=== PATIENT | male | born 1960 | race Caucasian/White ===

== ENCOUNTER 2016-03-18 14:47 | Emergency (ER) | payer OTHER ==
[~2016-03-18] VITALS: Ht 185.4 cm; Wt 124.7 kg
[~2016-03-18 14:47] MED LIST: ALBUTEROL S2 MG/5 ML INH; BACTRIM DS 8001 TAB PO; FLEXERIL10 MG PO; KLONOPIN 1MG TAB1 MG PO; PHENERGAN25 M1 PO; TYLENOL #31 TAB PO; ZOFRAN ODT4 MG PO; ZOFRAN4 M2 PO
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
[2016-03-18] MEDS ORDERED: QUETIAPINE FUMA25 M1 PO (15:48)
[2016-03-18] MEDS ORDERED: ESCITALOPRAM OX20 MG PO (15:48)
[2016-03-18] MEDS ORDERED: PROMETHAZINE HC25 M3 PO (15:48)
[2016-03-18] MEDS ORDERED: HYDROCHLOROTHIA25 M1 PO (15:59)
[2016-03-18] MEDS ORDERED: PRINIVIL20 M1 PO (15:59)
[2016-03-18] MEDS ORDERED: LOVASTATIN40 M1 PO (16:00)
[2016-03-18] MEDS ORDERED: ASPIRIN EC81 M1 PO (16:02)
[2016-03-18 17:29] LABS: ABSOLUTE BASOPHIL COUNT 0.1 /CUMM (0.0-0.2); ABSOLUTE EOSINOPHIL COUNT 0.2 /CUMM (0.0-0.7); ABSOLUTE GRANULOCYTE CT 9.6 /CUMM (1.4-6.5); ABSOLUTE LYMPH COUNT 1.7 /CUMM (1.2-3.4); ABSOLUTE MONOCYTE COUNT 0.7 /CUMM (0.10-0.60); BASOPHIL % 0.4 % (0.0-2.0); EOSINOPHIL % 1.4 % (0-5); GRANULOCYTE % 78.7 % (42.2-75.2); HEMATOCRIT 43.9 % (42-52); MEAN CORPUSCULAR HGB 24.9 PG (27.0-31.0); MEAN CORPUSCULAR HGB CONC 32.7 G/DL (33.0-37.0); MEAN CORPUSCULAR VOLUME 76.2 FL (80.0-94.0); MEAN PLATELET VOLUME 7.7 FL (7.4-10.4); PLATELET COUNT 319 /CUMM (130-400); RBC DISTRIBUTION WIDTH 15.5 % (11.5-14.5); RED BLOOD CELL CT 5.76 /CUMM (4.70-6.10); WHITE BLOOD CELL COUNT 12.2 /CUMM (4.8-10.8)
--- NOTE | 2016-03-18 19:12 | CT SCAN REPORT ---
EXAMINATION: CT ABDOMEN AND PELVIS WITHOUT CONTRAST CLINICAL INFORMATION: Intra-abdominal abscess. Restrictive diffuse abdominal pain. History of MRSA. COMPARISON: CT scan abdomen pelvis 10/02/2013. TECHNIQUE: Multidetector volumetric imaging was performed from the superior aspect of the liver through the pubic symphysis. Sagittal and coronal reformatted images were obtained on the technologist's workstation. No oral or intravenous contrast. DLP: 1563.22 mGy-cm. FINDINGS: LUNG BASES: Groundglass opacity at lung bases posteriorly consistent with dependent atelectasis. No infiltrate or pleural effusion. LIVER, GALLBLADDER, AND BILIARY TREE: Diffuse fatty change of liver. No focal liver lesion. No intrahepatic bile duct dilatation. The gallbladder is unremarkable with no evidence of radiopaque gallstones, gallbladder wall thickening, or obvious pericholecystic inflammatory changes. PANCREAS: Fatty atrophy of the pancreas. SPLEEN: Unremarkable. ADRENAL GLANDS: Unremarkable. KIDNEYS AND URETERS: The kidneys are normal in size, shape, and attenuation. No hydronephrosis, hydroureter, or calculi seen. No perinephric stranding. There are cortical and pedunculated renal cysts in the left kidney. BLADDER: Unremarkable. GASTROINTESTINAL TRACT: There is diverticulosis of the colon. Marked diverticulosis of left colon and sigmoid without diverticulitis. Moderate volume of scattered stool in colon. No bowel obstruction. No bowel wall thickening or edema. The appendix is normal. Small bowel loops are unremarkable. ABDOMINAL WALL: Surgical mesh at the midline abdomen near the umbilicus. There is a midline surgical incision which is intact. No hernia. Surrounding the mesh is a fluid collection. This measures 6 x 2 x 10 cm. No air in the fluid collection. There is a second fluid collection to the right of midline involving the abdominal wall musculature. This collection smaller measuring about 3 x 1 x 2 cm. There is thickening of the muscle locally in this area with stranding extending into the subcutaneous tissue with a linear opacity extending through the subcutaneous tissue to the skin line. There is additional site of thickening more cephalad also in the right upper quadrant but this has no inflammatory change. In the left lower quadrant there is thickening of the abdominal wall with some stranding extending into the subcutaneous tissue but without fluid collection. Sagittal image 58 (601. There are additional areas of focal thickening of the left anterior abdominal wall without fluid collection. LYMPH NODES: Normal. VASCULAR: Atherosclerotic vascular calcifications of aorta and iliac arteries. PELVIC VISCERA: Unremarkable. OSSEOUS STRUCTURES: Unremarkable. IMPRESSION: Postsurgical changes of the abdominal wall. There is surgical mesh which has some fluid surrounding it. There are focal area of thickening with fluid in the right side of the abdomen at the abdominal wall..
[2016-03-18] MEDS ORDERED: DILAUDID2 M1 PO (21:08)
[2016-03-18] MEDS ORDERED: XANAX0.5 M1 PO (21:08)
[2016-03-18] MEDS ORDERED: ZOFRAN ODT4 M1 SL (21:08)
[2016-03-18 21:14] VITALS: BP 123/67
== END 2016-03-18 21:27 ==
LOC: ERH 14:47
PROVIDERS: Physician Assistant Surgical
DX: T79.2XXA Traumatic secondary and recurrent hemorrhage and seroma, initial encounter (principal); I10 Essential (primary) hypertension; R11.10 Vomiting, unspecified
CPT/HCPCS: 1263; 87184; 74176; 87040; 87070; 87147; 96361; 96374; 96375; J2405; J2550

== ENCOUNTER 2016-07-07 17:33 | Inpatient (IN) | payer OTHER ==
[~2016-07-07] VITALS: Ht 182.9 cm; Wt 136.1 kg
[~2016-07-07 17:33] MED LIST changes: +ASPIRIN EC81 M1 PO; +DILAUDID2 M1 PO; +ESCITALOPRAM OX20 MG PO; +HYDROCHLOROTHIA25 M1 PO; +LOVASTATIN40 M1 PO; +PRINIVIL20 M1 PO; +PROMETHAZINE HC25 M3 PO; +QUETIAPINE FUMA25 M1 PO; +XANAX0.5 M1 PO; +ZOFRAN ODT4 M1 SL
--- NOTE | 2016-07-07 17:46 | NUR ---
PT STATES HE PULLED OFF HIS PROSTETIC LAST NIGHT AND STATES HE SAW STARS. PT STATES HE THINKS HE HAS AN INFECTION GOING ON IN HIS RIGHT BKA.
--- NOTE | 2016-07-07 19:07 | NUR ---
MARICARMEN XIAO AT BEDSIDE FOR EVALUATION OF WOUND
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
--- NOTE | 2016-07-07 19:17 | NUR ---
MEDICATED WITH ATIVAN PER eMAR FOR ANXIETY AND EMOTIONAL SUPPORT PROVIDED
--- NOTE | 2016-07-07 19:23 | NUR ---
LEG WRAPPED WITH STERILE ABD PAD. PT TO XRAY
[2016-07-07] MEDS ORDERED: METFORMIN HCL500 M3 PO (19:48)
--- NOTE | 2016-07-07 20:13 | NUR ---
PT WITH VERY POOR VENOUS ACCESS AND HX OF MULTIPLE STICKS. #24 ESTABLISHED TO R WRIST AND LABS OBTAINED BY ROGER MCINTOSH
--- NOTE | 2016-07-07 20:14 | RADIOLOGY REPORT ---
EXAMINATION: XR KNEE, RIGHT CLINICAL INFORMATION: Infection COMPARISON: 09/01/2010 TECHNIQUE: Four views of the right knee. FINDINGS: No convincing evidence for an acute bony erosion. Small foreign bodies are once again noted. Correlation recommended clinically. IMPRESSION: No convincing evidence for acute underlying bony erosion or suspicious periosteal change. Correlation recommended clinically. If further evaluation is warranted recommend MR pre and postcontrast.
[2016-07-07 20:36] LABS: ABSOLUTE BASOPHIL COUNT 0 /CUMM (0.0-0.2); ABSOLUTE EOSINOPHIL COUNT 0 /CUMM (0.0-0.7); ABSOLUTE GRANULOCYTE CT 10.5 /CUMM (1.4-6.5); ABSOLUTE LYMPH COUNT 0.8 /CUMM (1.2-3.4); ABSOLUTE MONOCYTE COUNT 0.9 /CUMM (0.10-0.60); BASOPHIL % 0 % (0.0-2.0); EOSINOPHIL % 0.1 % (0-5); HEMATOCRIT 39.2 % (42-52); MEAN CORPUSCULAR HGB 23.5 PG (27.0-31.0); MEAN CORPUSCULAR HGB CONC 31.3 G/DL (33.0-37.0); MEAN CORPUSCULAR VOLUME 75.1 FL (80.0-94.0); PLATELET COUNT 227 /CUMM (130-400); RBC DISTRIBUTION WIDTH 18.2 % (11.5-14.5); RED BLOOD CELL CT 5.22 /CUMM (4.70-6.10); WHITE BLOOD CELL COUNT 12.2 /CUMM (4.8-10.8)
--- NOTE | 2016-07-07 20:40 | NUR ---
PT APPEARS INTOXICATED WITH SLURRED SPEECH, NOTED TO HAVE MULTIPLE BEVERAGES AND LARGE CONTAINERS IN ROOM DESPITE ENCOURAGEMENT TO REMAIN NPO UNTIL APPROVED BY PA. PA NOTIFIED
--- NOTE | 2016-07-07 20:42 | NUR ---
PT NOTED TO BE SEDATED, SLURRING WORDS BUT AROUSABLE TO SPEECH
--- NOTE | 2016-07-07 20:42 | NUR ---
MEDICATED WITH UNASYN PER eMAR
--- NOTE | 2016-07-07 21:05 | NUR ---
CRITICAL TEST RESULTS [id number] RAINER SHEPARD 56 M TESTS AND RESULTS: LACTIC 3.0 POTASSIUM 1.9 Results received and read back by: PRADEEP CHRISTINE Results received date and time: 07/07/162104 The following provider was notified of the results, and read the results back: 2104 Notified date and time: 07/07/16 at 210
--- NOTE | 2016-07-07 21:15 | NUR ---
PT PROVIDED URINAL PREVIOUS, AND FOUND TO HAVE DROPPED URINE ALL OVER SELF AND BEDSIDE TABLE WITH ARM LAYING IN IT, BUT DID NOT NOTICE. URINE ALL OVER FLOOR. PT DENIES DRINKING ETOH TODAY, BUT STATES HE DOES FREQUENTLY. EKG COMPLETED. DENIES CHEST PAIN AND STATES HE MIGHT GO HOME AMA DESPITE TEACHIGN OF RISKS DUE TO CRITICAL NATURE OF LAB RESULTS
--- NOTE | 2016-07-07 21:21 | NUR ---
URINE TRIO SENT. PT FALLING ASLEEP THEN JOLTS AWAKE AND REDIRECTED TO NOT RIP OUT IV ACCIDENTALLY. PT IRRATED AND THREATENING TO LEAVE BECAUSE WE ARE PISSING HIM OFF BUT HE CANNOT EXPLAIN WHY. MARICARMEN TAYLOR NOTIFIED AND TO BEDSIDE
--- NOTE | 2016-07-07 21:59 | NUR ---
PT WANTS TO STAY IN T-SHIRT, DECLINING ENCOURAGEMENT MULTIPLE TIMES TO CHANGE INTO GOWN. STRUGGLES TO STAY AWAKE AND THEN BECOMES SLIGHTLY AWAKE AND IRRITABLE. ASKING THIS RN TO LEAVE ROOM AND ONLY WANTS PAIN MEDICINE. PT EDUCATED THAT HE WILL BE GIVEN MEDICINE TO HELP HIS ANXIETY AND AGITATION AND MEDICATED WITH ATIVAN. WOUND AGAIN DRESSED FOR THE FOURTH TIME PT IS RESTLESS ON STRETCHER AND REPEATEDLY REMOVED IT ACCIDENTALLY. PT TACHY ON CM 90'S-130'S BUT DENIES CP. DOES NOT WANT OTHER MEDS AT THIS TIME, BUT AGREEABLE TO PO POTASSIUM AND MEDICATED ORDERED. REQUIRES MONITORING FOR USE OF URINAL HE FALLS ASLEEP DURING TASKS AND IS A FALL RISK
--- NOTE | 2016-07-07 22:07 | NUR ---
PT GOING TO ROOM 188.
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
--- NOTE | 2016-07-07 22:25 | NUR ---
SECOND IV ESTABLISHED AND NS IVF BOLUS RUNNING AND MAG GTT RUNNING AT 50ML/HR, PER PA XIAO NOT 25ML/HR.
--- NOTE | 2016-07-07 22:54 | NUR ---
SST, REPEAT LACTIC AND GREEN ON ICE FOR SERUM K SENT TO LAB. MEDICATED WITH LABETOLOL FOR MANUAL BP 200/120 AND HR 110'S. REPEAT 172/86 AND HR 70'S-80'S. SLEEPING AT THIS TIME WITH EVEN RESPIRATIONS. PLACED ON SUPPLIMENTAL O2 2LNC FOR O2 SAT 89-90% AND IMPROVED TO 93-95%.
--- NOTE | 2016-07-07 23:19 | NUR ---
REPORT GIVEN TO KIMMIE VAZQUEZ
--- NOTE | 2016-07-07 23:31 | NUR ---
CRITICAL TEST RESULTS [id number] RAINER SHEPARD 56 M TESTS AND RESULTS: LACTIC 3.2, SERUM POTASSIUM 1.8 Results received and read back by: MEETA PATRICK Results received date and time: 07/07/16 2332 The following provider was notified of the results, and read the results back: HOUSE STAFF [id number] Notified date and time: 07/07/16 at 2311
[2016-07-08] VITALS: BP 142/68
--- NOTE | 2016-07-08 00:03 | NUR ---
PT BROUGHT UP TO ROOM ON TELE MONITOR WITH THIS RN, TWO MST'S AND SECURITY. PT TOLERATED WELL AND THEN PT TRANSFERED OVER TO BED. AROUSED AND AGITATED, UNABLE TO COOPERATE OR FOLLOW DIRECTIONS. ALLOWED FOR CHANGING INTO GOWN BUT THEN RIPPING IT OFF AND PULLING AWAY FROM STAFF. HOUSE STAFF IN ROOM FOR EVAL
--- NOTE | 2016-07-08 01:10 | RADIOLOGY REPORT ---
EXAMINATION: XR PORTABLE CHEST CLINICAL INFORMATION: Pneumonia. Congestion. COMPARISON: 01/30/2014 TECHNIQUE: Portable AP view of the chest was obtained. FINDINGS: Cardiac leads overlie the chest. Low lung volumes with elevation of the right hemidiaphragm. Central vascular prominence without overt edema. No pleural effusion or dense consolidation. No pneumothorax. The cardiomediastinal silhouette remains prominent. IMPRESSION: Central vascular prominence without overt edema. No dense consolidation.
[2016-07-08 02:00] VITALS: BP 150/86
--- NOTE | 2016-07-08 02:00 | NUR ---
PT ARRIVED TO FLOOR ON MONITOR, SLEEPING, TRANSFERRED PATIENT OVER TO BED. PT WOKE UP AND WAS SLIGHTLY CONFUSED AND UNCOOPERATIVE. DRESSED INTO GOWN, WHICH PATIENT PULLED OFF. PT REMOVED DRESSING TO RLE. HOUSESTAFF IN TO SEE PATIENT AND ASSESS WOUND. PT VERY FIDGETY AND UNCOOPERATIVE AND RESTLESS, BUT ALSO VERY DROWSY. WOULD STAY AWAKE FOR SEVERAL SECONDS, THEN FALL ASLEEP. WHILE AWAKE PT DID PULL IV OUT IN HIS LEFT HAND. PT ATTEMPTED SEVERAL TIMES TO USE THE URINAL HIMSELF BUT THEN WOULD FALL ASLEEP. PT ALSO ATTEMPTED TO SIT ON EDGE OF BED SEVERAL TIMES WITH LEGS DANGLING BUT WOULD FALL ASLEEP AND LEAN FORWARD, AND WOULD ALSO REMOVE HIS RLE DRESSING IN THE PROCESS. ORDER OBTAINED FOR PATIENT SAFETY MONITOR. NEW IV PUT IN AND MEDS AND FLUIDS GIVEN ORDERED. PT DID WAKE UP MORE WHEN ARRIVED AT 0200 BUT BECAME VERY ANXIOUS AND RESTLESS AND FIDGETY AGAIN AND BEGAN TO CRY. ONE TIME ORDER FOR ATIVAN OBTAINED. PT NOW SLEEPING COMFORTBALY, DRESSING INTACT.
[2016-07-08 04:00] VITALS: BP 150/88
[2016-07-08 06:00] VITALS: BP 180/93
--- NOTE | 2016-07-08 06:30 | NUR ---
PT'S BP NOTED TO BE 180/[address] SAM STOREY, GIVE SCHEDUELD DOSE OF LISINIPRIL EARLY NOW. ATTEMPTED TO GIVE THIS, BUT PATIENT DIFFICULT TO AROUSE AGAIN AND WOULD NOT KEEP EYES OPEN FOR MORE THAN [address]. [address] VARGAS WILL HOLD OFF ON THE LISINIPRIL FOR NOW AND RECHECK BP IN 2 HOURS. PT SLEEPING.
--- NOTE | 2016-07-08 07:32 | PN- Housestaff ---
Subjective Follow-up For: Cellulitis of the right BKA stump Alcohol withdrawal Opiate withdrawal T2DM Tele-Events Since Last Visit: Sinus rhythm HR 73-91 PVCs Subjective: No acute events overnight. Patient seen and examined this morning. He appears lethargic. Review of Systems Constitutional: Reports: see HPI. Objective Last 24 Hrs of Vital Signs/I&O Vital Signs Date Time Temp Pulse Resp B/P B/P Pulse O2 O2 Flow FiO2 Mean Ox Delivery Rate 07/08 1530 97.9 88 18 128/78 94 Room Air 07/08 1350 Nasal 2.0L Cannula 07/08 1015 98.0 91 18 160/80 07/08 1015 98.0 91 18 160/80 07/08 0921 98.0 91 18 160/80 95 Nasal Cannula 07/08 0800 Nasal 2.0L Cannula 07/08 0600 98.8 90 20 180/93 07/08 0400 99.0 88 20 150/88 07/08 0200 98.8 88 20 150/86 07/08 0000 Nasal 2.0L Cannula 07/08 0000 98.3 88 20 142/68 07/08 0000 98.3 88 20 142/68 98 Nasal 2.0L Cannula 07/07 2306 79 16 153/74 94 Nasal 2.0L Cannula 07/07 2256 99.0 78 14 172/86 94 Nasal 2.0L Cannula 07/07 2244 118 14 200/120 89 Room Air 07/07 2240 114 200/120 07/07 2235 97.0 114 16 195/93 94 Nasal 2.0L Cannula 07/07 2124 98.9 70 14 178/90 94 Room Air 07/07 1746 98.2 94 16 195/100 98 Room Air Intake & Output 07/08 1600 07/08 0800 07/08 0000 Intake Total 1460 1190 Output Total 950 650 400 Balance 510 540 -400 Intake, IV 1000 950 Intake, Oral 460 240 Output, Urine 950 650 400 Patient 0 kg Weight Weight Reported by Patient Measurement Method Physical Exam General Appearance: Lethargic HEENT: Atraumatic, Mucous Membr. moist/pink Neck: Supple Cardiovascular: Regular Rate, Normal S1, Normal S2, No Murmurs, Gallops, Rubs Lungs: Clear to Auscultation Abdomen: Soft, No Tenderness, Positive Bowel Sounds Extremities: S/p BKA, Wound with Erythema and Tenderness Current Medications: Current Medications Sig/Rodrigue Start time Last Medication Dose Route Stop Time Status Admin Acetaminophen 650 MG Q6P PRN 07/07 2315 AC PO Ampicillin Sodium/ 0 .STK-MED ONE 07/07 2042 DC Sulbactam Sodium .ROUTE Ampicillin Sodium/ 1,500 MG ONCE ONE 07/07 193 DC 07/07 Sulbactam Sodium IV 07/07 Sodium Chloride 100 ML Aspirin Buffered 81 MG DAILY 07/08 1000 AC 07/08 PO 1014 Atorvastatin Calcium 10 MG 1700 07/08 1700 AC PO Clonidine 0.1 MG BID 07/08 1000 AC 07/08 PO 1015 Escitalopram Oxalate 20 MG DAILY 07/08 1000 AC 07/08 PO 1014 Folic Acid 1 MG DAILY 07/08 1000 AC 07/08 PO 1014 Heparin Sodium 5,000 UNIT Q8 07/08 0600 AC 07/08 (Porcine) SC 1314 Hydrochlorothiazide 25 MG DAILY 07/08 1000 AC 07/08 PO 1014 Ibuprofen 600 MG Q6P PRN 07/07 2315 AC PO Insulin Aspart 0 TIDAC 07/08 0800 AC 07/08 SC 1203 Labetalol HCl 10 MG ONCE ONE 07/07 2244 DC 07/07 IV 07/07 2246 2240 Labetalol HCl 0 .STK-MED ONE 07/07 2241 DC IV Lisinopril 20 MG DAILY 07/08 1000 AC 07/08 PO 1015 Lorazepam 0 Q1P PRN 07/08 0300 AC IV Lorazepam 1 MG BID 07/08 0248 AC 07/08 PO 1013 Lorazepam 0 .STK-MED ONE 07/08 2135 DC .ROUTE Lorazepam 0 .STK-MED ONE 07/07 2132 DC .ROUTE Lorazepam 2 MG ONE ONE 07/07 2129 DC 07/07 IV 07/07 Lorazepam 1 MG ONE ONE 07/07 1914 DC 07/07 PO 07/07 Lorazepam 0 .STK-MED ONE 07/07 1913 DC PO Magnesium Sulfate 0 .STK-MED ONE 07/07 2132 DC .ROUTE Magnesium Sulfate 1 GM ONCE ONE 07/07 2129 DC 07/07 Dextrose/Water 100 ML IV 07/08 0129 2220 Multivitamins 1 TAB DAILY 07/08 1000 AC 07/08 PO 1014 Nicotine 21 MG DAILY 07/08 1000 AC 07/08 TOP 1013 Oxycodone/ 2 TAB Q6P PRN 07/07 2315 DC 07/08 Acetaminophen PO 0319 Potassium Chloride 60 MEQ ONCE ONE 07/08 0930 DC 07/08 PO 07/08 0931 1013 Potassium Chloride 10 MEQ Q1H 07/08 0930 DC 07/08 IV 07/08 1031 1207 Potassium Chloride 10 MEQ Q1H 07/07 2330 DC 07/08 IV 07/08 0031 0630 Potassium Chloride 40 MEQ ONCE ONE 07/07 2330 DC 07/08 PO 07/07 2331 0318 Potassium Chloride 0 .STK-MED ONE 07/07 2146 DC PO Potassium Chloride 10 MEQ ONCE ONE 07/07 211 DC 07/07 IV 07/08 2115 2250 Potassium Chloride 40 MEQ ONCE ONE 07/07 211 DC 07/07 PO 07/08 2115 2159 Promethazine HCl 25 MG Q6P PRN 07/08 0030 AC PO 07/15 0029 Quetiapine Fumarate 25 MG QPM 07/08 2200 AC PO Sodium Chloride 1,000 ML Q10H 07/07 2330 AC 07/08 IV 07/08 1929 0825 Sodium Chloride 1,000 ML BOLUS ONE 07/07 2199 DC 07/08 IV 07/07 2259 0310 Sodium Chloride 1,000 ML .Q8H 07/07 214 DC IV Sodium Chloride 1,000 ML BOLUS ONE 07/07 2114 DC 07/07 IV 07/07 2214 2150 Sodium Chloride 1,000 ML BOLUS ONE 07/07 2114 DC 07/07 IV 07/07 2214 2220 Thiamine HCl 100 MG DAILY 07/08 1000 AC 07/08 PO 1014 Vancomycin HCl 1,750 MG Q12 07/08 2200 UNir Sodium Chloride 250 ML IV Vancomycin HCl 2,000 MG Q12 07/08 1000 CAN Sodium Chloride 500 ML IV Vancomycin HCl 1,000 MG ONCE ONE 07/07 1930 DC 07/07 Sodium Chloride 250 ML IV 07/07 202 2300 Last 24 Hrs of Lab/James Results Last 24 Hrs of Labs/Mics: Laboratory Tests 07/08/16 0724: Anion Gap 7, Estimated GFR > 60, BUN/Creatinine Ratio 35.0 H, Lactic Acid 1.5, Total Bilirubin 0.5, Direct Bilirubin 0.4, AST 59, ALT 176 H, Alkaline Phosphatase 44, Total Protein 5.8 L, Albumin 2.7 L, CBC w Diff NO MAN DIFF REQ , RBC 4.77, MCV 75.0 L, MCH 24.1 L, RDW 18.1 H, MPV 8.3, Gran % 75.5 H, Lymphocytes % 13.0 L, Monocytes % 7.3, Eosinophils % 4.2, Basophils % 0 L, Absolute Granulocytes 6.0, Absolute Lymphocytes 1.0 L, Absolute Monocytes 0.6, Absolute Eosinophils 0.3, Absolute Basophils 0, PUBS MCHC 32.1 L 07/08/16 0319: Lactic Acid Cancelled 07/08/16 0140: Lactic Acid 2.6 H 07/08/16 0140: Anion Gap 8, Estimated GFR > 60, BUN/Creatinine Ratio 26.0 H, Phosphorus 3.0, Magnesium 2.1, Hepatitis A IgM Ab Pending, Hep Bs Antigen Pending, Hep B Core IgM Ab Conf Pending, Hepatitis C Antibody Pending 07/08/16 0100: Potassium Cancelled 07/07/16 2320: Sodium Cancelled, Potassium Cancelled, Chloride Cancelled, Carbon Dioxide Cancelled, Anion Gap Cancelled, BUN Cancelled, Creatinine Cancelled, BUN/ Creatinine Ratio Cancelled 07/07/16 2244: Lactic Acid 3.2 H 07/07/16 2233: Plasma Potassium 1.8 *L, Serum Alcohol < 10.0 07/07/162118: Urine Opiates Screen > 4000.00 H, Methadone Screen 159, Barbiturate Screen < 60 , Ur Phencyclidine Scrn < 6.00, Amphetamines Screen < 100, U Benzodiazepines Scrn < 85, Urine Cocaine Screen < 50, Urine Cannabis Screen 79.60 H 07/07/162109: Urine Color YEL, Urine Clarity CLEAR, Urine pH 7.5, Ur Specific [place] 1.020, Urine Protein 100 H, Urine Ketones NEG, Urine Nitrite NEG, Urine Bilirubin NEG, Urine Urobilinogen 0.2, Ur Leukocyte Esterase NEG, Ur Microscopic SEDIMENT EXAMINED, Urine RBC 1-3, Ur Epithelial Cells RARE, Urine Mucus RARE, Urine Hemoglobin SMALL H, Urine Glucose >=1000 H 07/07/162011: Anion Gap 10, Estimated GFR > 60, BUN/Creatinine Ratio 26.0 H, Glucose 309 H, Hemoglobin A1c 8.1 H, Lactic Acid 3.0 H, Calcium 8.5, Magnesium 1.9, Total Bilirubin 0.8, AST 106 H, ALT 195 H, Alkaline Phosphatase 49, Troponin I 0.06, C-Reactive Prot, Quant 7.5 H, Total Protein 6.4, Albumin 3.1 L, Globulin 3.3, Albumin/Globulin Ratio 0.9 L, CBC w Diff NO MAN DIFF REQ, RBC 5.22, MCV 75.1 L , MCH 23.5 L, RDW 18.2 H, MPV 8.0, Gran % 86.0 H, Lymphocytes % 6.6 L, Monocytes % 7.3, Eosinophils % 0.1, Basophils % 0 L, Absolute Granulocytes 10.5 H, Absolute Lymphocytes 0.8 L, Absolute Monocytes 0.9 H, Absolute Eosinophils 0, Absolute Basophils 0, PUBS MCHC 31.3 L, ESR Westergren 41 H, Serum Alcohol < 10.0 Microbiology 07/08 29 EXTREMITIE: Culture & Sensitivity - RES 07/08 29 EXTREMITIE: Gram Stain - RES 07/07 2013 BLOOD: Blood Culture - RES 07/08 2011 BLOOD: Blood Culture - RES BCx (07/07/16): Negative Superficial culture R BKA stump (07/08/16): Gram stain with few WBCs and GPCs Orders Radiology Findings: Central vascular prominence without overt edema. No dense consolidation. Assessment/Plan Assessment: 56 y/o M with PMHx of T2DM, COPD and s/p right BKA who presents with pain, erythema and swelling from the right BKA stump. #Cellulitis of the right BKA stump: Erythema, edema, purulent drainage at the BKA stump consistent with cellulitis with possible superimposed underlying fluid collection or osteomyelitis. Patient is colonized with MRSA therefore superficial culture may reflect skin contamination. Remains afebrile. Mild leukocytosis on admission has resolved. Lactic acid has improved to 1.5. BCx negative so far. S/p 1 dose of IV Unasyn followed by 1 dose of IV vancomycin in the ED. * ID following. Appreciate their recs. * Ultrasound of the R BKA stump ordered to evaluate for underlying fluid collection. * MRI of the right leg to ordered to evaluate for osteomyelitis. * Start vancomycin 1.75 g IV Q12H. #Lethargy: Likely secondary to opiate abuse with and Ativan that he has been receiving for alcohol withdrawal symptoms. Patient admits to buying opiates off the street and using methadone. * Start clonidine 0.1 mg PO BID. * Check ammonia to rule out hyperammonemia as a potential cause of altered mental status in view of elevated LFTs. * Discontinue narcotics including Percocet. * Continue gentle hydration with NS @ 75 cc/hr while patient is lethargic. #Hypokalemia: K 1.9 on admission. Improved to only 2.3 this morning after receiving 80 mEq of oral K and 10 mEq of IV K x3. Mg normal at 2.1. * Administer 60 mEq of oral K and 10 mEq of IV K x2. * Recheck K in the evening and replete as needed. #Elevated LFTs: AST/ALT slightly improved to 59/176 today from 106/195 on admission. Could be secondary to alcohol withdrawal although LFTs do not fit the 2:1 ratio characteristic of alcohol withdrawal. * Continue to monitor LFTs. * Hepatitis panel pending. #T2DM: HbA1c 8.1 suggesting suboptimal glycemic control. * Hold oral hypoglycemic agents while inpatient. * Increase low-dose sliding scale Novolog TIDAC to medium-dose. #Alcohol withdrawal: CIWA scores have been running low and are <10. * CIWA to monitor for signs/symptoms of alcohol withdrawal. * Continue Ativan 1 mg PO BID. * Ativan 1 mg IV Q1H PRN per CIWA protocol. * Continue daily MVI, thiamine and folic acid. #HTN: * Continue prior to admission HCTZ 25 mg PO daily and lisinopril 20 mg PO daily. * ECHO ordered to evaluate for CHF. Diet: Consistent Carbohydrate 3 DVT PPx: HSQ CODE: DNR/DNI Problem List: 1. Lethargy 2. Cellulitis of leg, right 3. Amputation of right lower extremity below knee 4. Opiate dependence 5. Alcohol withdrawal 6. T2DM (type 2 diabetes mellitus) 7. Elevated LFTs 8. Hypokalemia 9. Hypertension 10. Hx MRSA infection Pain Ratin Pain Location: BKA stump Pain Goal: Pain 4 or less Pain Plan: Percocet 2 tabs PO Q6H PRN for severe pain (scale 7-10) Motrin 600 mg PO Q6H PRN for moderate pain (scale 4-6) Tylenol 650 mg PO Q6H PRN for mild pain (scale 1-3) Tomorrow's Labs & Rationales: CBC to monitor WBC in the setting of infection BMP to monitor lytes and kidney function in the setting of electrolyte disturbances LFTs in the setting of transaminitis
[2016-07-08 08:36] LABS: ABSOLUTE BASOPHIL COUNT 0 /CUMM (0.0-0.2); ABSOLUTE EOSINOPHIL COUNT 0.3 /CUMM (0.0-0.7); ABSOLUTE MONOCYTE COUNT 0.6 /CUMM (0.10-0.60); BASOPHIL % 0 % (0.0-2.0); EOSINOPHIL % 4.2 % (0-5); GRANULOCYTE % 75.5 % (42.2-75.2); HEMATOCRIT 35.8 % (42-52); MEAN CORPUSCULAR HGB 24.1 PG (27.0-31.0); MEAN CORPUSCULAR HGB CONC 32.1 G/DL (33.0-37.0); MEAN PLATELET VOLUME 8.3 FL (7.4-10.4); PLATELET COUNT 195 /CUMM (130-400); RBC DISTRIBUTION WIDTH 18.1 % (11.5-14.5); RED BLOOD CELL CT 4.77 /CUMM (4.70-6.10)
[2016-07-08 09:21] VITALS: BP 160/80
--- NOTE | 2016-07-08 09:22 | Admission Certification ---
Admission Certification Certification Statement - As attending physician, I certify that at the time of - admission, based on clinical presentation, severity of - symptoms, need for further diagnostic testing and - therapeutic interventions, and risk of adverse outcomes - without in-hospital treatment, in my clinical assessment, - this patient requires an acute hospital stay for a minimum - of two nights or longer. I have also considered psychsocial - factors such as support system, advanced age, financial - issues, cognitive issues, and failed out-patient treatments, - past re-admission history, safety of patient, and lack of - compliance as applicable. Specific rationale supporting this admission is: Cellulitis right stump
--- NOTE | 2016-07-08 09:29 | PN- Att Addend ---
Attending Addendum Attending Brief Note Patient is lethargic and sleepy. Patient's at bedside. General Appearance: Sleepy Skin: Right stump superficial wound with minimal oozing HEENT: PEERLA Neck: Supple, No JVD Cardiovascular: Regular Rate, Normal S1, Normal S2, No Murmurs Lungs: Clear to Auscultation, Normal Air Movement Abdomen: Normal Bowel Sounds, Soft, No Tenderness Extremities: Right stump wound Assessment 56-year-old with history of COPD, hypertension, type 2 diabetes, history of MRSA in the past who is status post traumatic right stump amputation presenting with pain and discharge at the stump site. X-ray negative for osteo. It appears wound is superficial without bony involvement. He also has elevated LFTs. Patient's provides history of drug abuse. Patient buys opioids of street and sometimes she gets her methadone. According to her he may be having opioid withdrawals. X-ray shows central venous congestion. Plan Continue vancomycin ID consult MRI to rule out osteomyelitis Check hepatitis panel Discontinue opioids Start clonidine 0.1 mg twice a day Check hemoglobin A1c and maintain patient on insulin sliding scale with Accu- Cheks Order echocardiogram Continue other hypertensive medications Trende lactic acid and follow blood cultures Surgical evaluation if MRI suggesting collection or abscesses Start CIWA protocol Continue other home medications DVT prophylaxis DNI/DNR Current Medications Sig/Rodrigue Start time Last Medication Dose Route Stop Time Status Admin Acetaminophen 650 MG Q6P PRN 07/07 2314 AC PO Ampicillin Sodium/ 0 .STK-MED ONE 07/07 2042 DC Sulbactam Sodium .ROUTE Ampicillin Sodium/ 1,500 MG ONCE ONE 07/07 1930 DC 07/07 Sulbactam Sodium IV 07/07 Sodium Chloride 100 ML Aspirin Buffered 81 MG DAILY 07/08 1000 AC PO Atorvastatin Calcium 10 MG 1700 07/08 1700 AC PO Clonidine 0.1 MG BID 07/08 1000 AC PO Escitalopram Oxalate 20 MG DAILY 07/08 1000 AC PO Folic Acid 1 MG DAILY 07/08 1000 AC PO Heparin Sodium 5,000 UNIT Q8 07/08 0600 AC 07/08 (Porcine) SC 0547 Hydrochlorothiazide 25 MG DAILY 07/08 1000 AC PO Ibuprofen 600 MG Q6P PRN 07/07 2315 AC PO Insulin Aspart 0 TIDAC 07/08 0800 AC SC Labetalol HCl 10 MG ONCE ONE 07/07 2244 DC 07/07 IV 07/07 2240 Labetalol HCl 0 .STK-MED ONE 07/07 2242 DC IV Lisinopril 20 MG DAILY 07/08 1000 AC PO Lorazepam 0 Q1P PRN 07/08 0300 AC IV Lorazepam 1 MG BID 07/08 0248 AC 07/08 PO 0318 Lorazepam 0 .STK-MED ONE 07/08 2135 DC .ROUTE Lorazepam 0 .STK-MED ONE 07/07 2132 DC .ROUTE Lorazepam 2 MG ONE ONE 07/07 2129 DC 07/07 IV 07/07 2130 214 Lorazepam 1 MG ONE ONE 07/07 1914 DC 07/07 PO 07/08 1915 191 Lorazepam 0 .STK-MED ONE 07/07 1913 DC PO Magnesium Sulfate 0 .STK-MED ONE 07/07 2132 DC .ROUTE Magnesium Sulfate 1 GM ONCE ONE 07/07 2129 DC 07/07 Dextrose/Water 100 ML IV 07/08 0129 2220 Multivitamins 1 TAB DAILY 07/08 1000 AC PO Nicotine 21 MG DAILY 07/08 1000 AC TOP Oxycodone/ 2 TAB Q6P PRN 07/07 2315 DC 07/08 Acetaminophen PO 0319 Potassium Chloride 10 MEQ Q1H 07/07 2330 DC 07/08 IV 07/08 0031 0630 Potassium Chloride 40 MEQ ONCE ONE 07/07 233 DC 07/08 PO 07/07 2330 0318 Potassium Chloride 0 .STK-MED ONE 07/07 2145 DC PO Potassium Chloride 10 MEQ ONCE ONE 07/07 2114 DC 07/07 IV 07/08 2115 225 Potassium Chloride 40 MEQ ONCE ONE 07/07 2114 DC 07/07 PO 07/08 2115 215 Promethazine HCl 25 MG Q6P PRN 07/08 0030 AC PO 07/15 0029 Quetiapine Fumarate 25 MG QPM 07/08 2200 AC PO Sodium Chloride 1,000 ML Q10H 07/07 2330 AC 07/08 IV 07/08 1929 0825 Sodium Chloride 1,000 ML BOLUS ONE 07/07 2199 DC 07/08 IV 07/07 2258 0310 Sodium Chloride 1,000 ML .Q8H 07/07 214 DC IV Sodium Chloride 1,000 ML BOLUS ONE 07/07 2114 DC 07/07 IV 07/07 2213 2150 Sodium Chloride 1,000 ML BOLUS ONE 07/07 2114 DC 07/07 IV 07/07 2213 2220 Thiamine HCl 100 MG DAILY 07/08 1000 AC PO Vancomycin HCl 2,000 MG Q12 07/08 1000 CAN Sodium Chloride 500 ML IV Vancomycin HCl 1,000 MG ONCE ONE 07/07 1929 DC 07/07 Sodium Chloride 250 ML IV 07/07 Laboratory Tests 07/08 07/08 07/08 0724 0319 0140 Chemistry Sodium (137 - 145 mmol/L) 142 Potassium (3.5 - 5.1 mmol/L) 2.3 *L Chloride (98 - 107 mmol/L) 88 L Carbon Dioxide (22 - 30 mmol/L) 47 H Anion Gap (5 - 16) 7 BUN (9 - 20 mg/dL) 14 Creatinine (0.7 - 1.2 mg/dL) 0.4 L Estimated GFR (>60 ml/min) > 60 BUN/Creatinine Ratio (7 - 25 %) 35.0 H Lactic Acid (0.7 - 2.1 mmol/L) 1.5 Cancelled 2.6 H Total Bilirubin (0.2 - 1.3 mg/dL) 0.5 Direct Bilirubin (< 0.4 mg/dL) 0.4 AST (17 - 59 U/L) 59 ALT (21 - 72 U/L) 176 H Alkaline Phosphatase (< 127 U/L) 44 Total Protein (6.3 - 8.2 g/dL) 5.8 L Albumin (3.5 - 5.0 g/dL) 2.7 L Hematology CBC w Diff NO MAN DIFF REQ WBC (4.8 - 10.8 /CUMM) 8.0 RBC (4.70 - 6.10 /CUMM) 4.77 Hgb (14.0 - 18.0 G/DL) 11.5 L Hct (42 - 52 %) 35.8 L MCV (80.0 - 94.0 FL) 75.0 L MCH (27.0 - 31.0 PG) 24.1 L RDW (11.5 - 14.5 %) 18.1 H Plt Count (130 - 400 /CUMM) 195 MPV (7.4 - 10.4 FL) 8.3 Gran % (42.2 - 75.2 %) 75.5 H Lymphocytes % (20.5 - 51.1 %) 13.0 L Monocytes % (1.7 - 9.3 %) 7.3 Eosinophils % (0 - 5 %) 4.2 Basophils % (0.0 - 2.0 %) 0 L Absolute Granulocytes (1.4 - 6.5 /CUMM) 6.0 Absolute Lymphocytes (1.2 - 3.4 /CUMM) 1.0 L Absolute Monocytes (0.10 - 0.60 /CUMM) 0.6 Absolute Eosinophils (0.0 - 0.7 /CUMM) 0.3 Absolute Basophils (0.0 - 0.2 /CUMM) 0 PUBS MCHC (33.0 - 37.0 G/DL) 32.1 L 07/08 07/08 07/07 07/07 0140 0100 2320 2244 Chemistry Sodium (137 - 145 mmol/L) 139 Cancelled Potassium (3.5 - 5.1 mmol/L) 2.1 *L Cancelled Cancelled Chloride (98 - 107 mmol/L) 87 L Cancelled Carbon Dioxide (22 - 30 mmol/L) 44 H Cancelled Anion Gap (5 - 16) 8 Cancelled BUN (9 - 20 mg/dL) 13 Cancelled Creatinine (0.7 - 1.2 mg/dL) 0.5 L Cancelled Estimated GFR (>60 ml/min) > 60 BUN/Creatinine Ratio (7 - 25 %) 26.0 H Cancelled Lactic Acid (0.7 - 2.1 mmol/L) 3.2 H Magnesium (1.6 - 2.3 mg/dL) 2.1 Serology Hepatitis A IgM Ab (NONREACTIVE) Pending Hep Bs Antigen (NONREACTIVE) Pending Hep B Core IgM Ab Conf (NONREACTIVE) Pending Hepatitis C Antibody (NONREACTIVE) Pending 07/07 07/07 0202 2216 Chemistry Plasma Potassium (3.4 - 4.4 MMOL/L) 1.8 *L Toxicology Urine Opiates Screen (>2000 NG/ML) > 4000.00 H Methadone Screen (>300 NG/ML) 159 Barbiturate Screen (>200 NG/ML) < 60 Ur Phencyclidine Scrn (>25 NG/ML) < 6.00 Amphetamines Screen (>1000 NG/ML) < 100 U Benzodiazepines Scrn (>200 NG/ML) < 85 Urine Cocaine Screen (>300 NG/ML) < 50 Urine Cannabis Screen (>50 NG/ML) 79.60 H Serum Alcohol (<10 MG/DL) < 10.0 07/07 Chemistry Sodium (137 - 145 mmol/L) 134 L Potassium (3.5 - 5.1 mmol/L) 1.9 *L Chloride (98 - 107 mmol/L) 80 L Carbon Dioxide (22 - 30 mmol/L) 44 H Anion Gap (5 - 16) 10 BUN (9 - 20 mg/dL) 13 Creatinine (0.7 - 1.2 mg/dL) 0.5 L Estimated GFR (>60 ml/min) > 60 BUN/Creatinine Ratio (7 - 25 %) 26.0 H Glucose (65 - 99 mg/dL) 309 H Hemoglobin A1c (4.2 - 5.8 %) Pending Lactic Acid (0.7 - 2.1 mmol/L) 3.0 H Calcium (8.4 - 10.2 mg/dL) 8.5 Magnesium (1.6 - 2.3 mg/dL) 1.9 Total Bilirubin (0.2 - 1.3 mg/dL) 0.8 AST (17 - 59 U/L) 106 H ALT (21 - 72 U/L) 195 H Alkaline Phosphatase (< 127 U/L) 49 Troponin I (<0.11 ng/ml) 0.06 C-Reactive Prot, Quant (<1.0 mg/dL) 7.5 H Total Protein (6.3 - 8.2 g/dL) 6.4 Albumin (3.5 - 5.0 g/dL) 3.1 L Globulin (1.9 - 4.2 gm/dL) 3.3 Albumin/Globulin Ratio (1.1 - 2.2 %) 0.9 L Hematology CBC w Diff NO MAN DIFF REQ WBC (4.8 - 10.8 /CUMM) 12.2 H RBC (4.70 - 6.10 /CUMM) 5.22 Hgb (14.0 - 18.0 G/DL) 12.2 L Hct (42 - 52 %) 39.2 L MCV (80.0 - 94.0 FL) 75.1 L MCH (27.0 - 31.0 PG) 23.5 L RDW (11.5 - 14.5 %) 18.2 H Plt Count (130 - 400 /CUMM) 227 MPV (7.4 - 10.4 FL) 8.0 Gran % (42.2 - 75.2 %) 86.0 H Lymphocytes % (20.5 - 51.1 %) 6.6 L Monocytes % (1.7 - 9.3 %) 7.3 Eosinophils % (0 - 5 %) 0.1 Basophils % (0.0 - 2.0 %) 0 L Absolute Granulocytes (1.4 - 6.5 /CUMM) 10.5 H Absolute Lymphocytes (1.2 - 3.4 /CUMM) 0.8 L Absolute Monocytes (0.10 - 0.60 /CUMM) 0.9 H Absolute Eosinophils (0.0 - 0.7 /CUMM) 0 Absolute Basophils (0.0 - 0.2 /CUMM) 0 PUBS MCHC (33.0 - 37.0 G/DL) 31.3 L ESR Westergren (0 - 10 MM) 41 H Toxicology Serum Alcohol (<10 MG/DL) < 10.0 Urines Urine Color (YEL,AMB,STR) YEL Urine Clarity (CLEAR) CLEAR Urine pH (5.0 - 8.0) 7.5 Ur Specific [place] (1.001 - 1.035) 1.020 Urine Protein (NEG,<30 MG/DL) 100 H Urine Ketones (NEG) NEG Urine Nitrite (NEG) NEG Urine Bilirubin (NEG) NEG Urine Urobilinogen (0.1 - 1.0 EU/dl) 0.2 Ur Leukocyte Esterase (NEG) NEG Ur Microscopic SEDIMENT EXAMINED Urine RBC (0 - 5 /HPF) 1-3 Ur Epithelial Cells (NONE,FEW) RARE Urine Mucus (FEW,NONE) RARE Urine Hemoglobin (NEG) SMALL H Urine Glucose (N MG/DL) >=1000 H Vital Signs Date Time Temp Pulse Resp B/P B/P Pulse O2 O2 Flow FiO2 Mean Ox Delivery Rate 07/08 0921 98.0 91 18 160/80 95 Nasal Cannula 07/08 0800 Nasal 2.0L Cannula 07/08 0600 98.8 90 20 180/93 07/08 0400 99.0 88 20 150/88 07/08 0200 98.8 88 20 150/86 07/08 0000 Nasal 2.0L Cannula 07/08 0000 98.3 88 20 142/68 07/08 0000 98.3 88 20 142/68 98 Nasal 2.0L Cannula 07/07 2306 79 16 153/74 94 Nasal 2.0L Cannula 07/08 2255 99.0 78 14 172/86 94 Nasal 2.0L Cannula 07/07 2244 118 14 200/120 89 Room Air 07/07 2240 114 200/120 07/07 2235 97.0 114 16 195/93 94 Nasal 2.0L Cannula 07/074 98.9 70 14 178/90 94 Room Air 07/07 1746 98.2 94 16 195/100 98 Room Air
--- NOTE | 2016-07-08 15:24 | Cons- Infect Disease ---
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 On admission he was afebrile and appeared intoxicated, with slurred speech. Laboratory data revealed a white blood cell count of 12,000, glucose 309, BUN/creatinine 13 and 0.5, potassium 1.9, lactic acid 3.0, AST/ALT 106 and 195, alcohol level less than 10. Urinalysis 1-3 WBCs. Urine tox screen positive for opiates and cannabis. X-ray of the right knee was negative for osteomyelitis. Chest x-ray was negative. He was given 1 dose of Unasyn, followed by 1 dose of Vancomycin. He was placed on Ativan. He has remained afebrile since admission. At present he is unable to provide any history given his lethargy. Allergies/Medications Allergies: Coded Allergies: Gadolinium-Containing Contrast Medi (RASH 03/18/16) Iodinated Contrast Media - Oral and (RASH 03/18/16) Home Med List: Aspirin (Ecotrin*) 81 MG TABLET.DR 1 TAB PO DAILY HEART/BLOOD (Reported) Escitalopram Oxalate 20 MG TABLET 1 TAB PO DAILY MENTAL HEALTH (Reported) Hydrochlorothiazide 25 MG TABLET 1 TAB PO DAILY BP (Reported) Lisinopril (Prinivil) 20 MG TABLET 1 TAB PO DAILY BP (Reported) Lovastatin 40 MG TABLET 1 TAB PO DAILY CHOLESTEROL (Reported) with food Metformin HCl 500 MG TABLET 1 TAB PO DAILY DM (Reported) Promethazine HCl 25 MG TABLET 1 TAB PO Q6P PRN N/V (Reported) Quetiapine Fumarate 25 MG TABLET 1 TAB PO QPM MENTAL HEALTH/SLEEP (Reported) Past History Travel History Traveled to [place] past 21 day No Medical History Neurological: NONE EENT: NONE Cardiovascular: hypertension Respiratory: COPD Gastrointestinal: NONE Hepatic: NONE Renal: NONE Musculoskeletal: NONE Psychiatric: NONE Endocrine: NIDDM Other Medical Hx: 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, mesh infection Abdominal compartment syndrome History of MRSA: Yes History of VRE: No History of CDIFF: No Isolation History: Contact Surgical History Surgical History: status post multiple laparoscopies for an open abdomen, status post multiple skin grafts to the abdominal wall Psychosocial History Smoking Status: Current Everyday Smoker ETOH Use: occasional use Illicit Drug Use: denies illicit drug use Review of Systems Comments Unobtainable Exam & Diagnostic Data Last 24 Hrs of Vital Signs/I&O Vital Signs Date Time Temp Pulse Resp B/P B/P Pulse O2 O2 Flow FiO2 Mean Ox Delivery Rate 07/08 1350 Nasal 2.0L Cannula 07/08 1015 98.0 91 18 160/80 07/08 1015 98.0 91 18 160/80 07/08 0921 98.0 91 18 160/80 95 Nasal Cannula 07/08 0800 Nasal 2.0L Cannula 07/08 0600 98.8 90 20 180/93 07/08 0400 99.0 88 20 150/88 07/08 0200 98.8 88 20 150/86 07/08 0000 Nasal 2.0L Cannula 07/08 0000 98.3 88 20 142/68 07/08 0000 98.3 88 20 142/68 98 Nasal 2.0L Cannula 07/07 2306 79 16 153/74 94 Nasal 2.0L Cannula 07/07 2256 99.0 78 14 172/86 94 Nasal 2.0L Cannula 07/07 2244 118 14 200/120 89 Room Air 07/07 2240 114 200/120 07/07 2235 97.0 114 16 195/93 94 Nasal 2.0L Cannula 07/07 2124 98.9 70 14 178/90 94 Room Air 07/07 1746 98.2 94 16 195/100 98 Room Air Intake & Output 07/08 1600 07/08 0800 07/08 0000 Intake Total 1460 1190 Output Total 950 650 400 Balance 510 540 -400 Intake, IV 1000 950 Intake, Oral 460 240 Output, Urine 950 650 400 Patient 0 lb Weight Weight Reported by Patient Measurement Method Physical Exam Other Physical Findings: He is lethargic, minimally responsive on Ativan. He is afebrile. Skin reveals multiple scars status post skin grafting on the abdominal wall.. HEENT exam is negative. Neck is supple with no adenopathy. Lungs are clear. Heart regular rhythm with no murmur. Abdomen is obese, soft, nontender with positive bowel sounds. Back no CVA tenderness. Extremities status post right BKA with erythema, tenderness of the stump, with yellow drainage expressed. Neuro is without focality. Last 24 Hours of Lab Results: Laboratory Tests 07/08 07/08 07/08 0724 0319 0140 Chemistry Sodium (137 - 145 mmol/L) 142 Potassium (3.5 - 5.1 mmol/L) 2.3 *L Chloride (98 - 107 mmol/L) 88 L Carbon Dioxide (22 - 30 mmol/L) 47 H Anion Gap (5 - 16) 7 BUN (9 - 20 mg/dL) 14 Creatinine (0.7 - 1.2 mg/dL) 0.4 L Estimated GFR (>60 ml/min) > 60 BUN/Creatinine Ratio (7 - 25 %) 35.0 H Lactic Acid (0.7 - 2.1 mmol/L) 1.5 Cancelled 2.6 H Total Bilirubin (0.2 - 1.3 mg/dL) 0.5 Direct Bilirubin (< 0.4 mg/dL) 0.4 AST (17 - 59 U/L) 59 ALT (21 - 72 U/L) 176 H Alkaline Phosphatase (< 127 U/L) 44 Total Protein (6.3 - 8.2 g/dL) 5.8 L Albumin (3.5 - 5.0 g/dL) 2.7 L Hematology CBC w Diff NO MAN DIFF REQ WBC (4.8 - 10.8 /CUMM) 8.0 RBC (4.70 - 6.10 /CUMM) 4.77 Hgb (14.0 - 18.0 G/DL) 11.5 L Hct (42 - 52 %) 35.8 L MCV (80.0 - 94.0 FL) 75.0 L MCH (27.0 - 31.0 PG) 24.1 L RDW (11.5 - 14.5 %) 18.1 H Plt Count (130 - 400 /CUMM) 195 MPV (7.4 - 10.4 FL) 8.3 Gran % (42.2 - 75.2 %) 75.5 H Lymphocytes % (20.5 - 51.1 %) 13.0 L Monocytes % (1.7 - 9.3 %) 7.3 Eosinophils % (0 - 5 %) 4.2 Basophils % (0.0 - 2.0 %) 0 L Absolute Granulocytes (1.4 - 6.5 /CUMM) 6.0 Absolute Lymphocytes (1.2 - 3.4 /CUMM) 1.0 L Absolute Monocytes (0.10 - 0.60 /CUMM) 0.6 Absolute Eosinophils (0.0 - 0.7 /CUMM) 0.3 Absolute Basophils (0.0 - 0.2 /CUMM) 0 PUBS MCHC (33.0 - 37.0 G/DL) 32.1 L 07/08 07/08 07/07 07/07 0140 0100 2320 2244 Chemistry Sodium (137 - 145 mmol/L) 139 Cancelled Potassium (3.5 - 5.1 mmol/L) 2.1 *L Cancelled Cancelled Chloride (98 - 107 mmol/L) 87 L Cancelled Carbon Dioxide (22 - 30 mmol/L) 44 H Cancelled Anion Gap (5 - 16) 8 Cancelled BUN (9 - 20 mg/dL) 13 Cancelled Creatinine (0.7 - 1.2 mg/dL) 0.5 L Cancelled Estimated GFR (>60 ml/min) > 60 BUN/Creatinine Ratio (7 - 25 %) 26.0 H Cancelled Lactic Acid (0.7 - 2.1 mmol/L) 3.2 H Phosphorus (2.5 - 4.5 mg/dL) 3.0 Magnesium (1.6 - 2.3 mg/dL) 2.1 Serology Hepatitis A IgM Ab (NONREACTIVE) Pending Hep Bs Antigen (NONREACTIVE) Pending Hep B Core IgM Ab Conf (NONREACTIVE) Pending Hepatitis C Antibody (NONREACTIVE) Pending 07/07 07/07 [id number] Chemistry Plasma Potassium (3.4 - 4.4 MMOL/L) 1.8 *L Toxicology Urine Opiates Screen (>2000 NG/ML) > 4000.00 H Methadone Screen (>300 NG/ML) 159 Barbiturate Screen (>200 NG/ML) < 60 Ur Phencyclidine Scrn (>25 NG/ML) < 6.00 Amphetamines Screen (>1000 NG/ML) < 100 U Benzodiazepines Scrn (>200 NG/ML) < 85 Urine Cocaine Screen (>300 NG/ML) < 50 Urine Cannabis Screen (>50 NG/ML) 79.60 H Serum Alcohol (<10 MG/DL) < 10.0 07/07 Chemistry Sodium (137 - 145 mmol/L) 134 L Potassium (3.5 - 5.1 mmol/L) 1.9 *L Chloride (98 - 107 mmol/L) 80 L Carbon Dioxide (22 - 30 mmol/L) 44 H Anion Gap (5 - 16) 10 BUN (9 - 20 mg/dL) 13 Creatinine (0.7 - 1.2 mg/dL) 0.5 L Estimated GFR (>60 ml/min) > 60 BUN/Creatinine Ratio (7 - 25 %) 26.0 H Glucose (65 - 99 mg/dL) 309 H Hemoglobin A1c (4.2 - 5.8 %) 8.1 H Lactic Acid (0.7 - 2.1 mmol/L) 3.0 H Calcium (8.4 - 10.2 mg/dL) 8.5 Magnesium (1.6 - 2.3 mg/dL) 1.9 Total Bilirubin (0.2 - 1.3 mg/dL) 0.8 AST (17 - 59 U/L) 106 H ALT (21 - 72 U/L) 195 H Alkaline Phosphatase (< 127 U/L) 49 Troponin I (<0.11 ng/ml) 0.06 C-Reactive Prot, Quant (<1.0 mg/dL) 7.5 H Total Protein (6.3 - 8.2 g/dL) 6.4 Albumin (3.5 - 5.0 g/dL) 3.1 L Globulin (1.9 - 4.2 gm/dL) 3.3 Albumin/Globulin Ratio (1.1 - 2.2 %) 0.9 L Hematology CBC w Diff NO MAN DIFF REQ WBC (4.8 - 10.8 /CUMM) 12.2 H RBC (4.70 - 6.10 /CUMM) 5.22 Hgb (14.0 - 18.0 G/DL) 12.2 L Hct (42 - 52 %) 39.2 L MCV (80.0 - 94.0 FL) 75.1 L MCH (27.0 - 31.0 PG) 23.5 L RDW (11.5 - 14.5 %) 18.2 H Plt Count (130 - 400 /CUMM) 227 MPV (7.4 - 10.4 FL) 8.0 Gran % (42.2 - 75.2 %) 86.0 H Lymphocytes % (20.5 - 51.1 %) 6.6 L Monocytes % (1.7 - 9.3 %) 7.3 Eosinophils % (0 - 5 %) 0.1 Basophils % (0.0 - 2.0 %) 0 L Absolute Granulocytes (1.4 - 6.5 /CUMM) 10.5 H Absolute Lymphocytes (1.2 - 3.4 /CUMM) 0.8 L Absolute Monocytes (0.10 - 0.60 /CUMM) 0.9 H Absolute Eosinophils (0.0 - 0.7 /CUMM) 0 Absolute Basophils (0.0 - 0.2 /CUMM) 0 PUBS MCHC (33.0 - 37.0 G/DL) 31.3 L ESR [place] (0 - 10 MM) 41 H Toxicology Serum Alcohol (<10 MG/DL) < 10.0 Urines Urine Color (YEL,AMB,STR) YEL Urine Clarity (CLEAR) CLEAR Urine pH (5.0 - 8.0) 7.5 Ur Specific [place] (1.001 - 1.035) 1.020 Urine Protein (NEG,<30 MG/DL) 100 H Urine Ketones (NEG) NEG Urine Nitrite (NEG) NEG Urine Bilirubin (NEG) NEG Urine Urobilinogen (0.1 - 1.0 EU/dl) 0.2 Ur Leukocyte Esterase (NEG) NEG Ur Microscopic SEDIMENT EXAMINED Urine RBC (0 - 5 /HPF) 1-3 Ur Epithelial Cells (NONE,FEW) RARE Urine Mucus (FEW,NONE) RARE Urine Hemoglobin (NEG) SMALL H Urine Glucose (N MG/DL) >=1000 H Last 24 Hours of James Results: Blood cultures 2 July 07 negative Superficial culture right BKA stump July 08 pending, with gram stain revealing few white blood cells and few gram-positive cocci Diagnostic Data Recent Imaging Findings: Chest x-ray July 08 no dense consolidation X-ray of the right knee July 07 no evidence of bony erosion or periosteal change Assessment/Plan Assessment/Plan Impression: This is a 56-year-old man with a history of diabetes, hypertension, status post multiple abdominal wall surgeries following trauma 10 years prior to admission, with a right BKA also performed, admitted on July 07 with a several day history of right BKA stump pain, erythema and edema with purulent drainage, found to be afebrile with a mild leukocytosis and with blood cultures so far negative. It appears that he does have a infection of the right BKA stump and, at this time, it is unclear if this represents a cellulitis alone or if he has an underlying collection or osteomyelitis. He does appear to be colonized with MRSA, which could be responsible for this infection, though a superficial culture is of questionable value as it may just reflect skin contamination. Further evaluation may be appropriate to rule out a deeper infection involving the soft tissue or bone, particularly as his history is not particularly helpful. His lethargy is likely a combination of his opiate abuse and current treatment with Ativan. Suggestion: 1. Would obtain an ultrasound of the right BKA stump 2. Agree with MRI of the right leg 3. Would check an ammonia level 4. Begin Vancomycin 1.75 g IV every 12 hours pending above Consult Acknowledgment - Thank you for your consult request.
[2016-07-08 15:30] VITALS: BP 128/78
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
--- NOTE | 2016-07-08 20:28 | ULTRASOUND REPORT ---
EXAMINATION: US SUPERFICIAL IMAGING, EXTREMITY CLINICAL INFORMATION: Cellulitis stump COMPARISON: None TECHNIQUE: Real-time imaging by the supervisor propellant charge loading FINDINGS: In the area of skin redness medial aspect of the right knee distal there is a fluid collection. 2.9 x 0.8 x 3.2 cm. Collection is approximately 1.3 cm deep to the skin. Increased vascularity is seen around this area. IMPRESSION: Exam does identify a fluid collection in the area of redness associated with the stump on the right. Increased vascularity around it. Abscess would need to be considered
[2016-07-09] VITALS (9 sets, daily range): BP systolic 170–217; BP diastolic 90–110
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
--- NOTE | 2016-07-09 07:16 | PN- Housestaff ---
Subjective Follow-up For: Cellulitis of the right BKA stump Opiate dependence Hypokalemia Uncontrolled diabetes Alcohol withdrawal Tele-Events Since Last Visit: Sinus rhythm HR 74-86 No events Subjective: Blood pressure was elevated to a maximum of 217/110 overnight. Patient was given 2.5 mg of IV metoprolol and 5 mg of IV labetalol with slight improvement of blood pressure to 190s/100s. Patient was seen and examined this morning. He is more alert and awake compared to yesterday. He complains pain at the right BKA stump. His mood appears labile and he starts crying at the end of the interview. He reports that he feels depressed. Review of Systems Constitutional: Reports: see HPI. Objective Last 24 Hrs of Vital Signs/I&O Vital Signs Date Time Temp Pulse Resp B/P B/P Pulse O2 O2 Flow FiO2 Mean Ox Delivery Rate 07/09 1728 180/100 07/09 1610 98.4 75 16 170/90 93 Room Air 07/09 1600 75 170/90 07/09 1433 73 190/110 07/09 1416 190/110 07/09 1229 73 172/110 07/09 1143 172/110 07/09 1031 73 182/100 07/09 0945 182/100 07/09 0859 98.9 73 18 193/105 92 Room Air 07/09 0800 Nasal 2.0L Cannula 07/09 0744 76 197/104 07/09 0744 76 197/104 07/09 0542 77 197/104 07/09 0248 74 217/110 07/09 0111 92 190/107 07/09 0036 95 Nasal 2.0L Cannula 07/09 0012 97.5 98 20 190/107 95 Nasal 2.0L Cannula 07/09 0000 Nasal 2.0L Cannula 07/08 2032 96 168/98 Intake & Output 07/09 1600 07/09 0800 07/09 0000 Intake Total 2283 884 1232 Output Total 621 841 4700 Balance 520 0 300 Intake, IV 500 600 700 Intake, Oral 620 600 Number 2 1 Bowel Movements Output, Urine 754 703 5735 Patient 136.078 kg Weight Weight Reported by Patient Measurement Method Physical Exam General Appearance: Alert, Oriented X3, No Acute Distress, Labile Mood HEENT: Atraumatic, Mucous Membr. moist/pink Neck: Supple Cardiovascular: Regular Rate, Normal S1, Normal S2, No Murmurs, Gallops, Rubs Lungs: Clear to Auscultation Abdomen: Soft, No Tenderness, Positive Bowel Sounds Extremities: Dressing Intact Over Right BKA Stump Current Medications: Current Medications Sig/Rodrigue Start time Last Medication Dose Route Stop Time Status Admin Acetaminophen 650 MG Q6P PRN 07/07 2315 AC 07/09 PO 0649 Amlodipine Besylate 10 MG DAILY 07/10 1000 AC PO Amlodipine Besylate 5 MG ONCE ONE 07/09 1730 DC PO 07/09 1731 Amlodipine Besylate 5 MG DAILY 07/09 1000 DC 07/09 PO 1031 Aspirin Buffered 81 MG DAILY 07/08 1000 AC 07/09 PO 0921 Atorvastatin Calcium 10 MG 1700 07/08 1700 AC 07/09 PO 1715 Clonidine 0.1 MG BID 07/08 1000 AC 07/09 PO 0744 Escitalopram Oxalate 20 MG DAILY 07/08 1000 AC 07/09 PO 0921 Folic Acid 1 MG DAILY 07/08 1000 AC 07/09 PO 0921 Heparin Sodium 5,000 UNIT Q8 07/08 0600 AC 07/09 (Porcine) SC 1407 Hydralazine HCl 10 MG ONCE ONE 07/09 1600 DC 07/09 IV 07/09 1601 1600 Hydrochlorothiazide 25 MG DAILY 07/08 1000 AC 07/09 PO 0744 Ibuprofen 600 MG .STK-MED ONE 07/08 2213 DC PO 07/08 2214 Ibuprofen 600 MG Q6P PRN 07/07 2315 AC PO Insulin Aspart 0 TIDAC 07/08 0800 AC 07/09 SC 1714 Labetalol HCl 10 MG ONCE ONE 07/09 1430 DC 07/09 IV 07/09 1431 1433 Labetalol HCl 5 MG ONCE ONE 07/09 0530 DC 07/09 IV 07/09 0531 0542 Lactulose 20 GM BID 07/09 1445 AC 07/09 PO 1715 Lactulose 20 GM TID 07/09 1000 CAN PO Lisinopril 40 MG DAILY 07/10 1000 AC PO Lisinopril 20 MG ONCE ONE 07/09 1145 DC 07/09 PO 07/09 1146 1229 Lisinopril 20 MG DAILY 07/08 1000 DC 07/09 PO 0744 Lorazepam 0.5 MG BID 07/09 1000 AC 07/09 PO 07/15 0247 0920 Lorazepam 0 Q1P PRN 07/08 0300 AC 07/09 IV 0319 Lorazepam 1 MG BID 07/08 0248 DC 07/08 PO 2028 Losartan Potassium 50 MG DAILY 07/09 1000 CAN PO Metoprolol Tartrate 5 MG ONCE ONE 07/09 0515 CAN IV 07/09 0516 Metoprolol Tartrate 5 MG ONCE ONE 07/09 0300 CAN IV 07/09 0301 Metoprolol Tartrate 2.5 MG ONCE ONE 07/09 0100 DC 07/09 IV 07/09 0101 0111 Multivitamins 1 TAB DAILY 07/08 1000 AC 07/09 PO 0922 Nicotine 21 MG DAILY 07/08 1000 AC 07/09 TOP 0922 Oxycodone/ 1 TAB ONCE ONE 07/08 1815 DC 07/08 Acetaminophen PO 07/08 181 1822 Potassium Chloride 40 MEQ Q2 07/09 1800 AC 07/09 PO 07/09 2001 1715 Potassium Chloride 10 MEQ Q1H 07/09 1700 AC IV 07/09 1801 Potassium Chloride 60 MEQ ONCE ONE 07/09 0815 DC 07/09 PO 07/09 0816 0921 Potassium Chloride 10 MEQ Q1H 07/09 0145 DC 07/09 IV 07/09 0246 0413 Potassium Chloride 60 MEQ ONCE ONE 07/08 1830 DC 07/08 PO 07/08 1831 2029 Potassium Chloride 10 MEQ Q1H 07/08 1830 DC 07/09 IV 07/08 1931 0001 Promethazine HCl 25 MG Q6P PRN 07/08 0030 AC PO 07/15 0029 Quetiapine Fumarate 25 MG QPM 07/08 2200 AC 07/08 PO 2028 Sodium Chloride 1,000 ML Q10H 07/07 2330 DC 07/08 IV 07/08 1929 1600 Thiamine HCl 100 MG DAILY 07/08 1000 AC 07/09 PO 0922 Vancomycin HCl 1,750 MG Q12 07/08 2200 AC 07/09 Sodium Chloride 500 ML IV 09 Last 24 Hrs of Lab/James Results Last 24 Hrs of Labs/Mics: Laboratory Tests 07/09/16 1500: Potassium Cancelled 07/09/16 1456: 07/09/16 0725: Anion Gap 10, Estimated GFR > 60, BUN/Creatinine Ratio 32.0 H, Magnesium 2.1, Total Bilirubin 0.7, Direct Bilirubin 0.4, AST 72 H, ALT 189 H, Alkaline Phosphatase 45, Total Protein 5.8 L, Albumin 2.8 L, CBC w Diff NO MAN DIFF REQ , RBC 4.84, MCV 75.0 L, MCH 23.4 L, RDW 18.8 H, MPV 8.5, Gran % 82.2 H, Lymphocytes % 9.5 L, Monocytes % 8.1, Eosinophils % 0.1, Basophils % 0.1, Absolute Granulocytes 5.9, Absolute Lymphocytes 0.7 L, Absolute Monocytes 0.6, Absolute Eosinophils 0, Absolute Basophils 0, PUBS MCHC 31.2 L 07/09/16 0020: Anion Gap 8, Estimated GFR > 60, BUN/Creatinine Ratio 37.5 H 07/08/16 1745: Magnesium 2.1 07/08/16 1745: Ammonia 45 H Superficial culture of R BKA stump drainage (07/08/16): Staph aureus BCx (07/07/16): NGTD x2 Orders Miscellaneous Findings: US BKA STUMP: Exam does identify a fluid collection in the area of redness associated with the stump on the right. Increased vascularity around it. Abscess would need to be considered. 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 #Cellulitis of the right BKA stump: On day 2 of vancomycin for cellulitis of the right BKA stump with ultrasound showing fluid collection suggestive of an abscess. Superimposed osteomyelitis is a possibility as well given the chronicity of the wound which had initially developed 6 months ago, had healed but recurred per patient's . Superficial culture of the drainage from right BKA stump growing Staph aureus however this may reflect skin contamination in the setting of MRSA colonization. Blood cultures from admission negative. Patient does not meet SIRS criteria for sepsis in the absence of fever, leukocytosis or tachypnea, only positive for tachycardia on admission which has since resolved. * ID following. Appreciate their recs. * Possible drainage of right BKA stump abscess per surgery. * MRI of the right leg pending to evaluate for osteomyelitis. * Continue vancomycin 1.75 g IV Q12H. * Follow BCx. #Opiate withdrawal: Patient admits to buying opiates off the street and using his 's methadone. * Psych consulted for further management. Appreciate their recs. * Continue clonidine 0.1 mg PO BID. * Avoid narcotics. #Uncontrolled HTN/hypertensive urgency: BP has been running 170-190/90-100 despite receiving PO lisinopril and HCTZ as well as IV pushes of labetalol, metoprolol and hydralazine. Likely secondary to opiate withdrawal. * Continue prior to admission HCTZ 25 mg PO daily. * Closely monitor BP and administer IV anti-hypertensives as needed. * Increase lisinopril to 40 mg PO daily. * Start amlodipine 10 mg PO daily. * ECHO pending. #Hypokalemia: Remains persistently hypokalemic despite receiving large doses of oral and IV K supplementation. K 2.3 this afternoon. Mg normal. Potential etiologies include uncontrolled diabetes, chronic alcohol abuse or renal tubular acidosis. * Administer 40 mEq of oral K x2 and 10 mEq of IV K x2. * Recheck K at midnight. * Check urine lytes. #T2DM: Blood sugars are poorly controlled and were 442 in the morning. Could be secondary to dietary indiscretion as patient is eating candy/sweets brought from outside. HbA1c 8.1 suggesting suboptimal glycemic control. * Hold oral hypoglycemic agents while inpatient. * Increase low-dose sliding scale Novolog TIDAC to high dose. * Emphasize importance of dietary control. #Hyperammonemia: Ammonia elevated to 45. Likely secondary to hepatic inflammation in the setting of alcohol abuse. Could be contributing to encephalopathy. * Start lactulose 20 g PO BID. #Depression: Patient was on escitalopram 20 mg PO daily as well as Seroquel 25 mg PO QPM as outpatient which have not been controlling his symptoms adequately. He has not seen a psychiatrist formally. * Appreciate psych input on further management of depression. #Elevated LFTs: AST/ALT slightly increased to 72/189 today. Could be secondary to alcohol withdrawal although LFTs do not fit the 2:1 ratio characteristic of alcohol withdrawal. Hepatitis panel negative. * Continue to monitor LFTs. #Alcohol withdrawal: CIWA scores have been running low. * CIWA to monitor for signs/symptoms of alcohol withdrawal. * Decrease Ativan to 0.5 mg PO BID. * Ativan 1 mg IV Q1H PRN per CIWA protocol. * Continue daily MVI, thiamine and folic acid. Diet: Consistent Carbohydrate 3 DVT PPx: HSQ CODE: DNR/DNI Problem List: 1. Cellulitis of leg, right 2. Hypokalemia 3. Opiate dependence 4. T2DM (type 2 diabetes mellitus) 5. Amputation of right lower extremity below knee 6. Hx MRSA infection 7. Uncontrolled hypertension 8. Hypertensive urgency 9. Hyperammonemia 10. Alcohol withdrawal 11. Elevated LFTs 12. Depression Pain Ratin Pain Location: Right BKA stump Pain Goal: Remain pain free Pain Plan: Motrin 600 mg PO Q6H PRN for moderate pain (scale 4-6) Tylenol 650 mg PO Q6H PRN for mild pain (scale 1-3) Tomorrow's Labs & Rationales: CBC to monitor WBC in the setting of infection BMP to monitor lytes and kidney function in the setting of hypokalemia LFTs in the setting of transaminitis
--- NOTE | 2016-07-09 09:37 | PN- Att Addend ---
Attending Addendum Attending Brief Note Patient is teary and requesting to be discharged today. General Appearance: Tearful Skin: Right stump superficial wound with minimal oozing HEENT: PEERLA Neck: Supple, No JVD Cardiovascular: Regular Rate, Normal S1, Normal S2, No Murmurs Lungs: Clear to Auscultation, Normal Air Movement Abdomen: Normal Bowel Sounds, Soft, No Tenderness Extremities: Right stump wound Assessment Sepsis with mild leukocytosis and lactic acidosis. Ultrasound suggest possible abscesses. Awaiting surgical evaluation. He is also awaiting MRI right stump. Patient tearful and requesting to be discharged. We will get in inpatient psych evaluation. Liver functions improved and recent CAT scan suggested fatty liver. Plan Replete by mouth potassium Continue vancomycin Surgical evaluation for I&D MRI to rule out osteomyelitis Amlodipine low-dose if blood pressure remains uncontrolled Order echocardiogram Continue other hypertensive medications follow blood cultures Continue other home medications DVT prophylaxis DNI/DNR Current Medications Sig/Rodrigue Start time Last Medication Dose Route Stop Time Status Admin Acetaminophen 650 MG Q6P PRN 07/07 2315 AC 07/09 PO 0649 Aspirin Buffered 81 MG DAILY 07/08 1000 AC 07/09 PO 0921 Atorvastatin Calcium 10 MG 1700 07/08 1700 AC 07/08 PO 1754 Clonidine 0.1 MG BID 07/08 1000 AC 07/09 PO 0744 Escitalopram Oxalate 20 MG DAILY 07/08 1000 AC 07/09 PO 0921 Folic Acid 1 MG DAILY 07/08 1000 AC 07/09 PO 0921 Heparin Sodium 5,000 UNIT Q8 07/08 0600 AC 07/09 (Porcine) SC 0542 Hydrochlorothiazide 25 MG DAILY 07/08 1000 AC 07/09 PO 0744 Ibuprofen 600 MG .STK-MED ONE 07/08 2213 DC PO 07/08 2214 Ibuprofen 600 MG Q6P PRN 07/07 2315 AC PO Insulin Aspart 0 TIDAC 07/08 0800 AC 07/09 SC 0905 Labetalol HCl 5 MG ONCE ONE 07/09 0530 DC 07/09 IV 07/09 0531 0542 Lactulose 20 GM TID 07/09 1000 CAN PO Lisinopril 20 MG DAILY 07/08 1000 AC 07/09 PO 0744 Lorazepam 0.5 MG BID 07/09 1000 AC 07/09 PO 07/15 0247 0920 Lorazepam 0 Q1P PRN 07/08 0300 AC 07/09 IV 0319 Lorazepam 1 MG BID 07/08 0248 DC 07/08 PO 2028 Losartan Potassium 50 MG DAILY 07/09 1000 CAN PO Metoprolol Tartrate 5 MG ONCE ONE 07/09 0515 CAN IV 07/09 0516 Metoprolol Tartrate 5 MG ONCE ONE 07/09 0300 CAN IV 07/09 0301 Metoprolol Tartrate 2.5 MG ONCE ONE 07/09 0100 DC 07/09 IV 07/09 0101 0111 Multivitamins 1 TAB DAILY 07/08 1000 AC 07/09 PO 0922 Nicotine 21 MG DAILY 07/08 1000 AC 07/09 TOP 0922 Oxycodone/ 1 TAB ONCE ONE 07/08 1815 DC 07/08 Acetaminophen PO 07/08 1816 1822 Potassium Chloride 60 MEQ ONCE ONE 07/09 0815 DC 07/09 PO 07/09 0816 0921 Potassium Chloride 10 MEQ Q1H 07/09 0145 DC 07/09 IV 07/09 0246 0413 Potassium Chloride 60 MEQ ONCE ONE 07/08 1830 DC 07/08 PO 07/08 183 2029 Potassium Chloride 10 MEQ Q1H 07/08 1830 DC 07/09 IV 07/08 1931 0001 Potassium Chloride 10 MEQ Q1H 07/08 0930 DC 07/08 IV 07/08 1031 1207 Promethazine HCl 25 MG Q6P PRN 07/08 0030 AC PO 07/15 0029 Quetiapine Fumarate 25 MG QPM 07/08 220 AC 07/08 PO 2027 Sodium Chloride 1,000 ML Q10H 07/07 2330 DC 07/08 IV 07/08 1929 1600 Thiamine HCl 100 MG DAILY 07/08 1000 AC 07/09 PO 09 Vancomycin HCl 1,750 MG Q12 07/08 220 AC 07/09 Sodium Chloride 500 ML IV 09 Laboratory Tests 07/09 07/09 07/08 07/08 0725 0020 1745 1745 Chemistry Sodium (137 - 145 mmol/L) Pending 141 Potassium (3.5 - 5.1 mmol/L) Pending 2.4 *L 2.3 *L Chloride (98 - 107 mmol/L) Pending 88 L Carbon Dioxide (22 - 30 mmol/L) Pending 45 H Anion Gap (5 - 16) Pending 8 BUN (9 - 20 mg/dL) Pending 15 Creatinine (0.7 - 1.2 mg/dL) Pending 0.4 L Estimated GFR (>60 ml/min) > 60 BUN/Creatinine Ratio (7 - 25 %) Pending 37.5 H Magnesium (1.6 - 2.3 mg/dL) Pending 2.1 Total Bilirubin Pending Direct Bilirubin Pending AST Pending ALT Pending Alkaline Phosphatase Pending Ammonia (9 - 30 umol/L) 45 H Total Protein Pending Albumin Pending Hematology CBC w Diff Pending WBC Pending RBC Pending Hgb Pending Hct Pending MCV Pending MCH Pending RDW Pending Plt Count Pending MPV Pending PUBS MCHC Pending Vital Signs Date Time Temp Pulse Resp B/P B/P Pulse O2 O2 Flow FiO2 Mean Ox Delivery Rate 07/09 0859 98.9 73 18 193/105 92 Room Air 07/09 0744 76 197/104 07/09 0744 76 197/104 07/09 0542 77 197/104 07/09 0248 74 217/110 07/09 0111 92 190/107 07/09 0036 95 Nasal 2.0L Cannula 07/09 0012 97.5 98 20 190/107 95 Nasal 2.0L Cannula 07/09 0000 Nasal 2.0L Cannula 07/08 2032 96 168/98 07/08 1600 Nasal 2.0L Cannula 07/08 1530 97.9 88 18 128/78 94 Room Air 07/08 1350 Nasal 2.0L Cannula 07/08 1015 98.0 91 18 160/80 07/08 1015 98.0 91 18 160/80
[2016-07-09 10:02] LABS: ABSOLUTE BASOPHIL COUNT 0 /CUMM (0.0-0.2); ABSOLUTE EOSINOPHIL COUNT 0 /CUMM (0.0-0.7); ABSOLUTE GRANULOCYTE CT 5.9 /CUMM (1.4-6.5); ABSOLUTE LYMPH COUNT 0.7 /CUMM (1.2-3.4); ABSOLUTE MONOCYTE COUNT 0.6 /CUMM (0.10-0.60); BASOPHIL % 0.1 % (0.0-2.0); EOSINOPHIL % 0.1 % (0-5); GRANULOCYTE % 82.2 % (42.2-75.2); HEMATOCRIT 36.3 % (42-52); MEAN CORPUSCULAR HGB 23.4 PG (27.0-31.0); MEAN CORPUSCULAR HGB CONC 31.2 G/DL (33.0-37.0); MEAN PLATELET VOLUME 8.5 FL (7.4-10.4); PLATELET COUNT 204 /CUMM (130-400); RBC DISTRIBUTION WIDTH 18.8 % (11.5-14.5); RED BLOOD CELL CT 4.84 /CUMM (4.70-6.10); WHITE BLOOD CELL COUNT 7.2 /CUMM (4.8-10.8)
--- NOTE | 2016-07-09 13:10 | PN- Infect Dx ---
Subjective Subjective: Afebrile. He complains of pain in the right BKA stump Objective Last 24 Hrs of Vital Signs/I&O Vital Signs Date Time Temp Pulse Resp B/P B/P Pulse O2 O2 Flow FiO2 Mean Ox Delivery Rate 07/09 1229 73 172/110 07/09 1143 172/110 07/09 1031 73 182/100 07/09 0945 182/100 07/09 0859 98.9 73 18 193/105 92 Room Air 07/09 0800 Nasal 2.0L Cannula 07/09 0744 76 197/104 07/09 0744 76 197/104 07/09 0542 77 197/104 07/09 0248 74 217/110 07/09 0111 92 190/107 07/09 0036 95 Nasal 2.0L Cannula 07/09 0012 97.5 98 20 190/107 95 Nasal 2.0L Cannula 07/09 0000 Nasal 2.0L Cannula 07/08 2032 96 168/98 07/08 1600 Nasal 2.0L Cannula 07/08 1530 97.9 88 18 128/78 94 Room Air 07/08 1350 Nasal 2.0L Cannula Intake & Output 07/09 1600 07/09 0800 07/09 0000 Intake Total 600 1300 Output Total 600 1000 Balance 0 300 Intake, IV 600 700 Intake, Oral 600 Number 1 Bowel Movements Output, Urine 600 1000 Patient 300 lb Weight Weight Reported by Patient Measurement Method Physical Exam Other Physical Findings: He is more awake and alert and appears in no acute distress Extremities dressing intact over the right BKA stump Results Last 24 Hours of Lab Results: Laboratory Tests 07/09 07/09 07/08 07/08 0725 0020 1745 1745 Chemistry Sodium (137 - 145 mmol/L) 141 141 Potassium (3.5 - 5.1 mmol/L) 2.9 *L 2.4 *L 2.3 *L Chloride (98 - 107 mmol/L) 89 L 88 L Carbon Dioxide (22 - 30 mmol/L) 42 H 45 H Anion Gap (5 - 16) 10 8 BUN (9 - 20 mg/dL) 16 15 Creatinine (0.7 - 1.2 mg/dL) 0.5 L 0.4 L Estimated GFR (>60 ml/min) > 60 > 60 BUN/Creatinine Ratio (7 - 25 %) 32.0 H 37.5 H Magnesium (1.6 - 2.3 mg/dL) 2.1 2.1 Total Bilirubin (0.2 - 1.3 mg/dL) 0.7 Direct Bilirubin (< 0.4 mg/dL) 0.4 AST (17 - 59 U/L) 72 H ALT (21 - 72 U/L) 189 H Alkaline Phosphatase (< 127 U/L) 45 Ammonia (9 - 30 umol/L) 45 H Total Protein (6.3 - 8.2 g/dL) 5.8 L Albumin (3.5 - 5.0 g/dL) 2.8 L Hematology CBC w Diff NO MAN DIFF REQ WBC (4.8 - 10.8 /CUMM) 7.2 RBC (4.70 - 6.10 /CUMM) 4.84 Hgb (14.0 - 18.0 G/DL) 11.3 L Hct (42 - 52 %) 36.3 L MCV (80.0 - 94.0 FL) 75.0 L MCH (27.0 - 31.0 PG) 23.4 L RDW (11.5 - 14.5 %) 18.8 H Plt Count (130 - 400 /CUMM) 204 MPV (7.4 - 10.4 FL) 8.5 Gran % (42.2 - 75.2 %) 82.2 H Lymphocytes % (20.5 - 51.1 %) 9.5 L Monocytes % (1.7 - 9.3 %) 8.1 Eosinophils % (0 - 5 %) 0.1 Basophils % (0.0 - 2.0 %) 0.1 Absolute Granulocytes (1.4 - 6.5 /CUMM) 5.9 Absolute Lymphocytes (1.2 - 3.4 /CUMM) 0.7 L Absolute Monocytes (0.10 - 0.60 /CUMM) 0.6 Absolute Eosinophils (0.0 - 0.7 /CUMM) 0 Absolute Basophils (0.0 - 0.2 /CUMM) 0 PUBS MCHC (33.0 - 37.0 G/DL) 31.2 L Last 24 Hours of James Results: Right BKA stump culture July 08 positive for Staph aureus Blood cultures July 07 negative Recent Imaging Studies: Ultrasound of the right BKA stump July 08 reveals a fluid collection, measuring 2.9 x .8 x 3.2 cm approximately 1.3 cm deep to the skin Assessment/Plan Impression: Improved, now more alert and with temperatures and white blood cell count normal on Vancomycin Day 2 of empiric treatment for cellulitis of the right BKA stump, with ultrasound suggesting an abscess. Have discussed with Surgery, who may consider drainage of this collection at the bedside later today. Osteomyelitis must also be considered, given the chronicity of his ulcer (his states it first developed 6 months ago, had healed on its own but recently recurred), and he is scheduled for an MRI. His elevated ammonia level is noted and may have contributed to his encephalopathy. Suggestion: 1. Follow-up final superficial culture of the drainage from the right BKA stump 2. Await possible drainage of the collection per Surgery later today 3. Await MRI of the right leg 4. Further management of his elevated ammonia level per Medicine 5. Continue Vancomycin pending above Dina Joel MD will be covering me until July 15
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
[2016-07-10] VITALS (7 sets, daily range): BP systolic 140–172; BP diastolic 88–102
--- NOTE | 2016-07-10 07:08 | PN- Housestaff ---
MAURILIO LAWRENCE,[facility] [place] 07/10/16 0708: Subjective Follow-up For: Cellulitis of the right BKA stump Opiate withdrawal Uncontrolled HTN Hypokalemia Uncontrolled T2DM Hyperammonemia Depression Alcohol withdrawal Tele-Events Since Last Visit: Sinus rhythm HR 70-78 No events Subjective: Patient refused MRI of the right leg to evaluate for osteomyelitis of the BKA stump. He was hypertensive to 180/110 overnight. Blood pressures had improved to 140/90 in the morning after receiving 5 mg of IV hydralazine in addition to oral antihypertensive medications. Patient was seen and examined this morning. He expressed his desire to leave AMA and reported that he is in a lot of distress as he was not getting any opioids. His girlfriend at bedside expressed her concerns that his opiate withdrawal was not being treated properly and requested him to be placed on opioids to prevent withdrawal symptoms. The seriousness of his medical condition, the need for inpatient hospitalization for further evaluation and management as well as the risks of leaving AMA including were explained in detail to the patient and his girlfriend. They verbalized their understanding but were adamant in their decision to leave AMA. They stated that they will go to [facility] for their care. Param Mckay APRN was called in for assessment who felt that patient has healthcare decision-making and dispositional capacity and may leave AMA. Patient was subsequently discharged AMA. Review of Systems Constitutional: Reports: see HPI. Objective Last 24 Hrs of Vital Signs/I&O Vital Signs Date Time Temp Pulse Resp B/P B/P Pulse O2 O2 Flow FiO2 Mean Ox Delivery Rate 07/10 1013 74 140/90 07/10 1013 70 140/90 07/10 1012 74 140/90 07/10 0756 97.8 78 16 140/90 97 Room Air 07/10 0600 98.9 70 20 140/90 07/10 0218 98.4 74 160/88 07/10 0200 74 16 160/88 07/10 0134 74 172/100 07/10 0019 98.9 73 22 172/102 93 Room Air 07/10 0000 98.4 74 16 170/100 07/10 0000 95 Nasal 2.0L Cannula 07/09 2203 84 182/82 Intake & Output 07/10 1600 07/10 0800 07/10 0000 Intake Total 1400 820 Output Total 1100 Balance 300 820 Intake, IV 800 100 Intake, Oral 600 720 Output, Urine 1100 Physical Exam General Appearance: Alert, Oriented X3, No Acute Distress HEENT: Atraumatic, Mucous Membr. moist/pink Neck: Supple Cardiovascular: Regular Rate, Normal S1, Normal S2, No Murmurs, Gallops, Rubs Lungs: Clear to Auscultation Abdomen: Soft, No Tenderness, Obese, Positive Bowel Sounds Extremities: Right BKA Stump with Dressing in Place Current Medications: Current Medications Sig/Rodrigue Start time Last Medication Dose Route Stop Time Status Admin Acetaminophen 650 MG Q6P PRN 07/07 2315 DCD 07/09 PO 0649 Amlodipine Besylate 10 MG DAILY 07/10 1000 DCD 07/10 PO 1013 Aspirin Buffered 81 MG DAILY 07/08 1000 DCD 07/10 PO 1013 Atorvastatin Calcium 10 MG 1700 07/08 1700 DCD 07/09 PO 1715 Baclofen 10 MG Q6P PRN 07/10 0743 DCD PO Baclofen 10 MG TIDPRN PRN 07/10 0200 DC PO Clonidine 0.1 MG BID 07/08 1000 DCD 07/10 PO 1013 Dicyclomine HCl 20 MG 4 TIMES/DAY PRN 07/10 0745 DCD PO Escitalopram Oxalate 20 MG DAILY 07/08 1000 DCD 07/10 PO 1013 Folic Acid 1 MG DAILY 07/08 1000 DCD 07/10 PO 1013 Heparin Sodium 5,000 UNIT Q8 07/08 0600 DCD 07/10 (Porcine) SC 0513 Hydralazine HCl 5 MG ONCE ONE 07/10 0100 DC 07/10 IV 07/10 0101 0134 Hydrochlorothiazide 25 MG DAILY 07/08 1000 DCD 07/10 PO 1013 Ibuprofen 600 MG .STK-MED ONE 07/10 0510 DC PO 07/10 0511 Ibuprofen 600 MG Q6P PRN 07/07 2315 DCD PO Insulin Aspart 0 AT BEDTIME 07/09 2200 DCD 07/09 SC 2203 Insulin Aspart 0 TIDAC 07/08 0800 DCD 07/09 SC 1714 Lactulose 20 GM BID 07/09 1445 DCD 07/09 PO 2304 Lisinopril 40 MG DAILY 07/10 1000 DCD 07/10 PO 1012 Lorazepam 0.5 MG BID 07/09 1000 DCD 07/09 PO 07/15 0247 2202 Lorazepam 0 Q1P PRN 07/08 0300 DCD 07/09 IV 0319 Multivitamins 1 TAB DAILY 07/08 1000 DCD 07/10 PO 1012 Nicotine 21 MG DAILY 07/08 1000 DCD 07/09 TOP 0922 Patient Medication 1 ED .STK-MED ONE 07/10 1419 DC Teaching ED 07/10 1420 Potassium Chloride 10 MEQ Q1H 07/10 0430 DC 07/10 IV 07/10 0531 0616 Potassium Chloride 60 MEQ ONCE ONE 07/10 0430 DC 07/10 PO 07/10 0431 0430 Potassium Chloride 10 MEQ ONCE ONE 07/10 0345 DC 07/10 IV 07/10 0346 0410 Promethazine HCl 25 MG Q6P PRN 07/08 0030 DCD PO 07/15 0029 Quetiapine Fumarate 25 MG QPM 07/08 2200 DCD 07/09 PO 2202 Thiamine HCl 100 MG DAILY 07/08 1000 DCD 07/10 PO 1014 Tramadol HCl 50 MG ONCE ONE 07/10 0745 DC PO 07/10 0746 Vancomycin HCl 1,750 MG Q12 07/08 2200 DCD 07/09 Sodium Chloride 500 ML IV 2304 Last 24 Hrs of Lab/James Results Last 24 Hrs of Labs/Mics: Laboratory Tests 07/10/16 0600: CBC w Diff Cancelled, WBC Cancelled, RBC Cancelled, Hgb Cancelled, Hct Cancelled , MCV Cancelled, MCH Cancelled, RDW Cancelled, Plt Count Cancelled, MPV Cancelled, PUBS MCHC Cancelled 07/10/16 0210: Orders ECHO Findings: Normal size left ventricle. Normal left ventricular ejection fraction visually estimated at > 60%. Mild mitral annular calcification. Technically difficult study with noncooperative patient. 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 Patient left AMA today after evaluation by psychiatry who thought that he has healthcare decision-making and dispositional capacity with regards to his infection and electrolyte abnormalities. #Cellulitis of the right BKA stump: Received 2 days of vancomycin for cellulitis of the right BKA stump with ultrasound showing fluid collection suggestive of an abscess. Superimposed osteomyelitis is a possibility as well given the chronicity of the wound however patient refused MRI of the right leg for further evaluation. Superficial culture of the drainage from right BKA stump growing Staph aureus however this may reflect skin contamination in the setting of MRSA colonization. Blood cultures from admission negative. * Patient was provided outpatient referral for ID and general surgery on discharge and encouraged to follow up. * Patient was given prescription for 15-day course of Bactrim-DS PO BID on discharge. #Uncontrolled HTN/hypertensive urgency: Likely secondary to opiate withdrawal. BPs were uncontrolled this admission despite receiving high doses of oral antihypertensives as well as IV pushes. However, this morning BP had improved to 140/90. * Lisinopril dose was increased to 40 mg PO daily on discharge. #Hypokalemia: Remained persistently hypokalemic despite receiving large doses of oral and IV K supplementation. Most recent K was 2.4 at midnight. Mg normal. Potential etiologies include uncontrolled diabetes, chronic alcohol abuse or renal tubular acidosis. Urine K was 28.2. * K-tab ER 10 mEq PO TID was added to discharge medications. #Depression: Patient and his girlfriend expressed their interest in following up at [facility] after being discharged from [facility]. * Outpatient referral for psych was provided on discharge. Diet: Consistent Carbohydrate 3 DVT PPx: HSQ CODE: DNR/DNI Problem List: 1. Amputation of right lower extremity below knee 2. Cellulitis of right leg 3. Depression 4. Hyperammonemia 5. Hypertensive urgency 6. Uncontrolled hypertension 7. Hx MRSA infection 8. Elevated LFTs 9. Hypokalemia 10. T2DM (type 2 diabetes mellitus) 11. Alcohol withdrawal 12. Opiate withdrawal Pain Ratin Pain Location: Right BKA stump Pain Goal: Remain pain free Pain Plan: Motrin 600 mg PO Q6H PRN for moderate pain (scale 4-6) Tylenol 650 mg PO Q6H PRN for mild pain (scale 1-3) Tomorrow's Labs & Rationales: None Discharge Plan Discharge Disposition: left AMA Anticipated Discharge (Day): today ANDRES OCHOA MD 07/10/16 1250: Attending Review Statement Attending Statement Attending Assessment/Plan: Pt left AMA. was not examined today. He was discharged on Bactrim DS for 10 days. Agree with potassium suplement and increased dose of lasix. Pt advsied to return to office next week.
[2016-07-10] MEDS ORDERED: BACTRIM DS TAB1 EACH PO (08:17)
--- NOTE | 2016-07-10 08:18 | Patient Discharge Instructions ---
Discharge Instructions General Discharge Information You were seen/treated for: Cellulitis of the right BKA stump with presumed abscess and possible osteomyelitis Opiate withdrawal Hypertensive urgency Hypokalemia Hyperammonemia and elevated liver enzymes Uncontrolled type 2 diabetes Alcohol withdrawal Watch for these problems: Fever or chills Increasing redness, swelling or pain at right leg stump Drainage from right leg stump Chest pain or difficulty breathing Weakness or dizziness Special Instructions: You are leaving AGAINST MEDICAL ADVICE. Please be aware that you have a serious medical condition which requires close inpatient follow-up and treatment and if remains untreated, can lead to severe medical complications, including even . Please follow up with your primary care physician Dr. Jeison Justice within one week of discharge. Please follow up with infectious disease specialist Dr. Titus Mccallum and general surgeon Dr. Scout Matamoros for infection of right leg amputation stump within one week of discharge. [facility] at [facility] within one week of discharge. Please call to make an appointment. Diet Recommended Diet: Diabetic Activity Activity Self Limited: Yes Additional ACTIVITY Info: As tolerated with assistance Acute Coronary Syndrome Inclusion Criteria At DC or during hospital stay patient has or had the following: ACS DIAGNOSIS No Discharge Core Measures Meds if any: Prescribed or Continued at Discharge Meds if any: NOT Prescribed or Continued at Discharge Congestive Heart Failure Inclusion Criteria At DC or during hospital stay patient has or had the following: CHF DIAGNOSIS No Discharge Core Measures Meds if any: Prescribed or Continued at Discharge Meds if any: NOT Prescribed or Continued at Discharge Cerebrovascular accident Inclusion Criteria At DC or during hospital stay patient has or had the following: CVA/TIA Diagnosis No Discharge Core Measures Meds if any: Prescribed or Continued at Discharge Meds if any: NOT Prescribed or Continued at Discharge Venous thromboembolism Inclusion Criteria VTE Diagnosis No VTE Type NONE VTE Confirmed by (Test) NONE Discharge Core Measures - Per Current guidelines, there needs to be overlap - treatment for the first 5 days of Warfarin therapy. - If discharged on Warfarin prior to 5 days of - overlap therapy, the patient will need to be - assessed for post discharge needs including - *Post discharge parental anticoagulation - *Warfarin and/or parental anticoagulation education - *Follow up date to check INR post discharge At least 5 days overlap therapy as Inpatient No Meds if any: Prescribed or Continued at Discharge Note: Overlap Therapy is Warfarin and Anticoagulant Meds if any: NOT Prescribed or Continued at Discharge
[2016-07-10] MEDS ORDERED: K-TAB ER10 MEQ PO ×2 (08:40→09:07)
[2016-07-10] MEDS ORDERED: LISINOPRIL40 M1 PO ×2 (08:40→09:07)
--- NOTE | 2016-07-10 09:06 | PN- Psychiatry ---
Assessment/Plan Impression: Identifying Info: 56-year-old male presents to [facility] emergency department on 07/07/2016 with chief complaint of pain and drainage from right leg. SUBJECTIVE Patient is interviewed with at bedside. She asked questions regarding whether or not patient should've received opiate medication during this hospitalization. Verbalized understanding of supportive care approach for opiate withdrawal due to patient's lethargy. Patient states "I really just want to get out of here... And really would rather go to [facility]" Patient and are agreed unable to seeking follow-up psychiatric care at [facility] outpatient services. Brief ROS Gait: Unobserved Sleep: Reports poor Appetite: Adequate OBJECTIVE Mental Status Exam Presentation/Appearance: Cooperative with evaluation. Hospital garb. Orientation: x3 Sensorium: Awake and alert Eye contact: Appropriate Affect: Full range, less tearful Mood: Euythymic Depression: Denies Anxiety: Decreased Thought Content: - Denies SI/HI, AH/VH, PI. States and also believes they will not kill themselves. - Denies Hopeless/Helpless Thoughts Thought Process: Linear Speech: Somewhat dysarthic Judgment: Fair Insight: Fair Cognition: Memory: Grossly intact Attention/Concentration: Grossly intact Capacity assessment Discussed current medical problems with the patient is able to adequately communicate a choice, understand the relevant information, appreciate the situation and it's consequences including risks and benefits of treatment versus no treatment, and reason about treatment options. ASSESSMENT 56-year-old male who requested leave the hospital AGAINST MEDICAL ADVICE. At present the patient displays capacity regarding healthcare decisions in this position in relation to his infection and electrolyte abnormalities. He does continue to display some anxiety and would benefit from follow-up outpatient psychiatric care. Differential diagnosis Mood disorder due to another medical condition vs unspecified mood disorder with anxious features Rule out neurocognitive disorder Rule out unspecified trauma or related disorder Suggestion: 1. Patient satisfies healthcare decision-making and dispositional capacity as it relates to treatment of his infection and electrolyte abnormalities. He may be discharged AMA. 2. Patient and agree to seek follow-up care for psychiatric issues at [facility] outpatient services once he is discharged from [facility]. Provided contact info for the clinic. Thank you for including psychiatry in this case will be signing off. Subjective Subjective: as above Objective Last 24 Hrs of Vital Signs/I&O Current Medications Sig/Rodrigue Start time Last Medication Dose Route Stop Time Status Admin Acetaminophen 650 MG Q6P PRN 07/07 2315 AC 07/09 PO 0649 Amlodipine Besylate 10 MG DAILY 07/10 1000 AC 07/10 PO 1013 Amlodipine Besylate 5 MG ONCE ONE 07/09 1730 DC 07/09 PO 07/09 1731 1809 Amlodipine Besylate 5 MG DAILY 07/09 1000 DC 07/09 PO 1031 Aspirin Buffered 81 MG DAILY 07/08 1000 AC 07/10 PO 1013 Atorvastatin Calcium 10 MG 1700 07/08 1700 AC 07/09 PO 1715 Baclofen 10 MG Q6P PRN 07/10 0743 AC PO Baclofen 10 MG TIDPRN PRN 07/10 0200 DC PO Clonidine 0.1 MG BID 07/08 1000 AC 07/10 PO 1013 Dicyclomine HCl 20 MG 4 TIMES/DAY PRN 07/10 0745 AC PO Escitalopram Oxalate 20 MG DAILY 07/08 1000 AC 07/10 PO 1013 Folic Acid 1 MG DAILY 07/08 1000 AC 07/10 PO 1013 Heparin Sodium 5,000 UNIT Q8 07/08 0600 AC 07/10 (Porcine) SC 0513 Hydralazine HCl 5 MG ONCE ONE 07/10 0100 DC 07/10 IV 07/10 0101 0134 Hydralazine HCl 10 MG ONCE ONE 07/09 1600 DC 07/09 IV 07/09 1601 1600 Hydrochlorothiazide 25 MG DAILY 07/08 1000 AC 07/10 PO 1013 Ibuprofen 600 MG Q6P PRN 07/07 2315 AC PO Insulin Aspart 0 AT BEDTIME 07/09 2200 AC 07/09 SC 2203 Insulin Aspart 0 TIDAC 07/08 0800 AC 07/09 SC 1714 Labetalol HCl 10 MG ONCE ONE 07/09 1430 DC 07/09 IV 07/09 1431 1433 Lactulose 20 GM BID 07/09 1445 AC 07/09 PO 2304 Lisinopril 40 MG DAILY 07/10 1000 AC 07/10 PO 1012 Lisinopril 20 MG ONCE ONE 07/09 1145 DC 07/09 PO 07/09 1146 1229 Lisinopril 20 MG DAILY 07/08 1000 DC 07/09 PO 0744 Lorazepam 0.5 MG BID 07/09 1000 AC 07/09 PO 07/15 0247 2202 Lorazepam 0 Q1P PRN 07/08 0300 AC 07/09 IV 0319 Multivitamins 1 TAB DAILY 07/08 1000 AC 07/10 PO 1012 Nicotine 21 MG DAILY 07/08 1000 AC 07/09 TOP 0922 Potassium Chloride 10 MEQ Q1H 07/10 0430 DC 07/10 IV 07/10 0531 0616 Potassium Chloride 60 MEQ ONCE ONE 07/10 0430 DC 07/10 PO 07/10 0431 0430 Potassium Chloride 10 MEQ ONCE ONE 07/10 0345 DC 07/10 IV 07/10 0346 0410 Potassium Chloride 40 MEQ Q2 07/09 1800 DC 07/09 PO 07/09 2000 220 Potassium Chloride 10 MEQ Q1H 07/09 1700 DC 07/09 IV 07/09 180 2353 Promethazine HCl 25 MG Q6P PRN 07/08 0030 AC PO 07/15 0029 Quetiapine Fumarate 25 MG QPM 07/08 2200 AC 07/09 PO 2202 Thiamine HCl 100 MG DAILY 07/08 1000 AC 07/10 PO 1014 Tramadol HCl 50 MG ONCE ONE 07/10 0745 DC PO 07/10 0746 Vancomycin HCl 1,750 MG Q12 07/08 2200 AC 07/09 Sodium Chloride 500 ML IV 2304 Laboratory Tests 07/10/16 0210: 07/09/16 1900: Vancomycin Trough < 5.0 L 07/09/16 1500: Potassium Cancelled 07/09/16 1456: Vital Signs Date Time Temp Pulse Resp B/P B/P Pulse O2 O2 Flow FiO2 Mean Ox Delivery Rate 07/10 1013 74 140/90 07/10 1013 70 140/90 07/10 1012 74 140/90 07/10 0756 97.8 78 16 140/90 97 Room Air 07/10 0600 98.9 70 20 140/90 07/10 0218 98.4 74 160/88 07/10 0200 74 16 160/88 07/10 0134 74 172/100 07/10 0019 98.9 73 22 172/102 93 Room Air 07/10 0000 98.4 74 16 170/100 07/10 0000 95 Nasal 2.0L Cannula 07/09 2203 84 182/82 07/09 1938 180/110 07/09 1809 75 180/100 07/09 1728 180/100 07/09 1610 98.4 75 16 170/90 93 Room Air 07/09 1600 75 170/90 07/09 1433 73 190/110 07/09 1416 190/110 07/09 1229 73 172/110 07/09 1143 172/110 07/09 1031 73 182/100 Intake & Output 07/10 1600 07/10 0800 07/10 0000 Intake Total 1400 820 Output Total 1100 Balance 300 820 Intake, IV 800 100 Intake, Oral 600 720 Output, Urine 1100
--- NOTE | 2016-07-10 09:20 | NUR ---
AT 0730 PATIENT'S SIGNIFICANT OTHER ARRIVED TO SEE PATIENT, SHE STATED SHE WAS "DISMISSING HIM" IMMEDIATELY AND TAKING HIM HOME. DR. THORPE NOTIFIED AND IN TO SPEAK WITH PATIENT AND SIGNIFICANT OTHER. CHARGE NURSE ALSO NOTIFIED. PATIENT AND SIGNIFICANT OTHER AGREED TO WAIT TO LEAVE AMA UNTIL EVALUATED BY PSYCHIATRY. PSYCHIATRY CAME AND EVALUATED PATIENT. PATIENT AND FAMILY MEMBER VERBALIZED UNDERSTANDING OF RISKS ASSOCIATED WITH LEAVING AMA INCLUDING SEPSIS, CARDIAC EVENT AND . PATIENT FOUND COMPETENT TO MAKE DECISION TO LEAVE AMA.
--- NOTE | 2016-07-10 09:23 | ECHOCARDIOGRAM REPORT ---
RAINER SHEPARD Age: 56 : 1960 Gender: M Exam Date: 07/09/2016 11:08 Exam Location: [address] Ht (in): 72 Wt (lb): 300 BSA: 2.69 BP: 182 / 100 Ordering Physician: JOSSELIN THORPE MD Referring Physician: JOSSELIN THORPE MD Technologist: Kal Mortensen [facility] Room Number: [id number] Indications: HEART FAILURE Rhythm: Sinus Technical Quality: Very technically difficult study FINDINGS Left Ventricle Normal size left ventricle. Normal left ventricular wall thickness. Normal left ventricular ejection fraction visually estimated at > 60%. No obvious regional wall motion abnormalities. Right Ventricle Normal right ventricular size and function. Right Atrium Normal right atrial size. Left Atrium Normal left atrial size. Mitral Valve Mild mitral annular calcification. No mitral regurgitation. Aortic Valve Aortic valve not well visualized, grossly normal. No aortic stenosis. Tricuspid Valve Tricuspid valve not well visualized, grossly normal. Pulmonic Valve Pulmonic valve not well visualized, grossly normal. Pericardium No pericardial effusion. Great Vessels Normal size aortic root. CONCLUSIONS Normal size left ventricle. Normal left ventricular ejection fraction visually estimated at > 60%. Mild mitral annular calcification. Technically difficult study with noncooperative patient. Paul Griffiths M.D. (Electronically Signed) Final Date: 10 July 2016 09:22 MEASUREMENTS (Male / Female) Normal Values 2D ECHO LV Diastolic Diameter PLAX 5.1 cm 4.2 - 5.9 / 3.9 - 5.3 cm LV Systolic Diameter PLAX 3.4 cm 2.1 - 4.0 cm LV Fractional Shortening PLAX 33.3 % 25 - 46 % LV Ejection Fraction 2D Teich 61.7 % IVS Diastolic Thickness 1.1 cm LVPW Diastolic Thickness 1.2 cm LV Relative Wall Thickness 0.5 RV Internal Dim ED PLAX 3.2 cm 1.9 - 3.8 cm LVOT Diameter 2.4 cm Aortic Root Diameter 3.5 cm LA Systolic Diameter LX 4.1 cm 3.0 - 4.0 / 2.7 - 3.8 cm DOPPLER AV Peak Velocity 134.0 cm/s AV Peak Gradient 7.2 mmHg AV Mean Velocity 89.1 cm/s AV Mean Gradient 4.0 mmHg AV Velocity Time Integral 27.3 cm LVOT Peak Velocity 148.0 cm/s LVOT Peak Gradient 8.8 mmHg LVOT Mean Velocity 90.8 cm/s LVOT Mean Gradient 4.0 mmHg LVOT Velocity Time Integral 29.1 cm LVOT Stroke Volume 131.6 cm AV Area Cont Eq vti 4.8 cm AV Area Cont Eq pk 5.0 cm MV Peak Velocity 92.4 cm/s MV Peak Gradient 3.4 mmHg MV Mean Velocity 58.1 cm/s MV Mean Gradient 2.0 mmHg Mitral E Point Velocity 88.8 cm/s Mitral A Point Velocity 77.5 cm/s Mitral E to A Ratio 1.1 MV PHT Velocity 93.7 cm/s MV Deceleration Bullitt 386.0 cm/s MV Pressure Half Time 72.8 ms MV Area PHT 3.0 cm MV Deceleration Time 246.0 ms
--- NOTE | 2016-07-10 12:28 | Discharge Summary ---
Visit Information Visit Dates Admission Date: 07/07/16 Discharge Date: 07/10/16 Hospital Course Course Attending Physician: ANDRES OCHOA MD Primary Care Physician: AZIZA MONTEZ MD Consulting Request: 1 Consulting Specialty: Infectious Disease Consulting Physician: Yvette Mccallum MD Reason for Consult: Right BKA stump infection Consulting Request: 2 Consulting Specialty: General Surgery Consulting Physician: Papo Matamoros Reason for Consult: abscess Consulting Request: 3 Consulting Specialty: Psychiatry Consulting Physician: Andrea Gibson APRN Reason for Consult: depression and opiate withdrawal Hospital Course: Mr. 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 On initial presentation, patient was afebrile, drowsy but arousable and with slurred speech. Vitals were remarkable for tachycardia to 110s and BP 195/100. Labs were remarkable for WBC 12.2, BUN/Cr 13/0.5, K 1.9, lactic acid 3.0 and AST/ALT 106/195. Serum alcohol was <10. Urine toxicology screen was positive for opiates and cannabis. X-ray of the right knee showed no evidence of osteomyelitis. CXR was negative. He was administered 1 dose of Unasyn and 1 dose of vancomycin and subsequently admitted for further management of cellulitis of the right lower extremity and altered mental status. 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 Ultrasound of the BKA stump was performed which showed fluid collection suggestive of an abscess. General surgery was consulted who felt that surgical debridement should be deferred in the interest of preserving the function of the amputation in view of the risks of exposing the bone and removing vital soft tissue padding. MRI of the right knee W/O ALINA was ordered to evaluate for osteomyelitis however patient refused. Superficial culture of the drainage from right BKA stump grew Staph aureus however this could reflect skin contamination in the setting of MRSA colonization. Blood cultures from admission were negative. * Patient was provided outpatient referral for ID and general surgery on discharge and encouraged to follow up. * Patient was given prescription for 15-day course of Bactrim-DS PO BID on discharge. #Opiate withdrawal: This was felt to be an important contributor to patient's lethargy. Opioids were held and patient was started on clonidine 0.1 mg PO BID as well as Baclofen and dicyclomine PRN for withdrawal symptoms. Patient's mental status later improved significantly and he became awake, alert and interactive, however he endorsed significant withdrawal symptoms and distress. #Uncontrolled HTN/Hypertensive urgency: Patient's blood pressure was difficult to control trending up to >200/100 despite receiving high doses of oral antihypertensives as well as IV pushes. Uncontrolled HTN was attributed to opiate withdrawal. On day of discharge, blood pressure had improved and was 140/ 90. * [id number] lisinopril dose was increased to 40 mg PO daily on discharge. #Uncontrolled T2DM: Patient's blood sugars were poorly controlled and elevated to 400s throughout hospitalization. Uncontrolled blood sugars were attributed to dietary indiscretion as patient was eating candy/sweets brought from outside. Patient was placed on sliding scale Novolog three times daily before meals. HbA1c was checked and came back at 8.1 suggesting suboptimal glycemic control. #Hyperammonemia: Ammonia was checked and came back at 45. It was felt that this could be contributing to his encephalopathy, therefore patient was started on lactulose. #Depression: Psychiatry was consulted for further management of depression and opiate and alcohol withdrawal. Patient and his girlfriend expressed their interest in following up at [facility] after being discharged from [facility]. * Outpatient referral for psych was provided on discharge. #Hypokalemia: Patient remained persistently hypokalemic despite aggressive oral and IV supplementation. Magnesium was normal. Potential etiologies that were entertained included uncontrolled diabetes, chronic alcohol abuse or renal tubular acidosis. Most recent K on discharge was 2.4. * K-tab ER 10 mEq PO TID was added to discharge medications. #Alcohol withdrawal: Patient was placed on scheduled oral Ativan which was gradually tapered as well as IV Ativan per CIWA protocol. Daily MVI, folic acid and thiamine were administered. Patient's CIWA scores were all less than or equal to 10 throughout hospitalization. On day 4 of admission, patient expressed his desire to leave A as he felt that his opioid withdrawal was not addressed properly, requesting to be placed on opioids to prevent withdrawal symptoms. His girlfriend was in agreement and adamant that the patient is discharged AMA, further expressing that they will go to [facility] for his care after being discharged. Upon evaluation by psychiatry who felt that patient had the decisional capacity to leave AMA, patient was discharged AMA. Allergies: Coded Allergies: Gadolinium-Containing Contrast Medi (RASH 03/18/16) Iodinated Contrast Media - Oral and (RASH 03/18/16) Disposition Summary Disposition Principal Diagnosis: Cellulitis of the right BKA stump Additional Diagnosis: Opiate withdrawal Uncontrolled HTN/Hypertensive urgency Hypokalemia Uncontrolled T2DM Hyperammonemia Depression Alcohol withdrawal Discharge Disposition: left against medical adv Discharge Instructions General Discharge Information Code Status: Full Code Patient's Diet: Diabetic Patient's Activity: As tolerated with assistance Follow-Up Instructions/Appts: You are leaving AGAINST MEDICAL ADVICE. Please be aware that you have a serious medical condition which requires close inpatient follow-up and treatment and if remains untreated, can lead to severe medical complications, including even . Please follow up with your primary care physician Dr. Aziza Montez within one week of discharge. Please follow up with infectious disease specialist Dr. Yvette Mccallum and general surgeon Dr. Papo Matamoros for infection of right leg amputation stump within one week of discharge. Please follow up at [facility] within one week of discharge. Please call to make an appointment. Medications at Discharge Discharge Medications: Stop taking the following medications: Lisinopril (Prinivil) 20 MG TABLET ORAL DAILY Continue taking these medications: Promethazine HCl (Promethazine HCl) 25 MG TABLET 1 Tablet ORAL EVERY SIX HOURS NEEDED as needed for N/V Qty = 90 Comments: DID NOT RECIEVE Quetiapine Fumarate (Quetiapine Fumarate) 25 MG TABLET 1 Tablet ORAL Every night Qty = 30 Comments: Last Taken: 07/09/16 Time: 2200 Escitalopram Oxalate (Escitalopram Oxalate) 20 MG TABLET 1 Tablet ORAL DAILY Qty = 30 Comments: Last Taken: 07/09/16 Time: 0921 Hydrochlorothiazide (Hydrochlorothiazide) 25 MG TABLET 1 Tablet ORAL DAILY Comments: Last Taken:07/09/16 Time: 0745 Lovastatin (Lovastatin) 40 MG TABLET 1 Tablet ORAL DAILY Instructions: with food Comments: DID NOT RECIEVE IN HOSPITAL Aspirin (Ecotrin*) 81 MG TABLET.DR 1 Tablet ORAL DAILY Comments: Last Taken: 07/09/16 Time: 0930 Metformin HCl (Metformin HCl) 500 MG TABLET 1 Tablet ORAL DAILY Qty = 90 Comments: Last Taken: DID NOT RECIEVE IN HOSPITAL Start taking the following new medications: Potassium Chloride (K-Tab ER) 10 MEQ TABLET.ER 1 Tablet ORAL THREE TIMES DAILY Qty = 30 No Refills Comments: RECIEVED MULTIPLE DOSES OF POTASSIUM IN HOSPITAL LAST 07/10/16 0500 Lisinopril (Lisinopril) 40 MG TABLET 1 Tablet ORAL DAILY Qty = 10 No Refills Comments: DID NOT RECIEVE Sulfamethoxazole/Trimethoprim (Bactrim Ds Tablet) 800 MG-160 MG TABLET 1 Tablet ORAL TWICE DAILY Qty = 30 No Refills Comments: RECIEVED IV ANTIBIOTICS WHILE HERE DID NOT RECIEVE BACTRIM Copies To: ANDREA GIBSON APRN; TC LAWRENCE,AZIZA Sebastian; CHAPIS LAWRENCE,PAPO Kessler; AIDEN LAWRENCE,YVETTE Katz
== END 2016-07-10 10:20 | disposition left against medical advice (07) | DRG 872 ==
LOC: ERH 17:33 → 1NO 21:16 → ERHI 21:16 → ENRESERV 21:55 → 1NO 23:40 → ENPENDDIS 07-10 09:27 → 1NO 07-10 10:20
PROVIDERS: Dermatology; Internal Medicine Infectious Disease; Physician Assistant; ADMIT Internal Medicine
DX: A41.9 Sepsis, unspecified organism (principal); E72.4 Disorders of ornithine metabolism; Z68.41 Body mass index [BMI] 40.0-44.9, adult; L03.115 Cellulitis of right lower limb; F10.239 Alcohol dependence with withdrawal, unspecified; F11.23 Opioid dependence with withdrawal; E87.6 Hypokalemia; F12.129 Cannabis abuse with intoxication, unspecified; E11.9 Type 2 diabetes mellitus without complications; Y90.0 Blood alcohol level of less than 20 mg/100 ml; E66.01 Morbid (severe) obesity due to excess calories; F32.9 Major depressive disorder, single episode, unspecified; I16.0 Hypertensive urgency; J44.9 Chronic obstructive pulmonary disease, unspecified; I10 Essential (primary) hypertension; Z89.511 Acquired absence of right leg below knee; F17.200 Nicotine dependence, unspecified, uncomplicated; G47.33 Obstructive sleep apnea (adult) (pediatric); Z66 Do not resuscitate; Z79.84 Long term (current) use of oral hypoglycemic drugs
CPT/HCPCS: 1NP; 84133; 84300; 87184; ERO; 36415; 73562-RT; 76881; 80307; 81001; 82436; 82570; 87040; 87070; 87147; 93005; 93010; 93306; 96374; 96375; 99291; G0480; J0360; J1644; J2405; J3370; J3490; J7040